=== PATIENT | female | born 1930 | race Caucasian/White ===

== ENCOUNTER 2019-02-24 13:11 | Inpatient (IN) ==
--- NOTE | 2019-02-24 13:39 | Diag Imaging Result Doc PS360 ---
EXAM: CT HEAD W/O CONTRAST INDICATION: poss cva TECHNIQUE: This exam was performed using automated exposure control, adjustment of mA or kV according to patient size, and/or use of iterative reconstruction technique. COMPARISON: 07/21/2018 FINDINGS: Mild diffuse brain atrophy and moderate periventricular and subcortical white matter microangiopathy is stable. There is no definite acute infarct given the limited sensitivity of CT versus MRI. There is no discrete intracranial mass, mass effect, or intracranial hemorrhage. The surrounding soft tissues and bony structures are essentially unremarkable. IMPRESSION: Stable chronic changes as described. No definite acute intracranial pathology by CT. Electronically signed by Oscar Mcdonough 02/24/2019 1:37 PM
--- NOTE | 2019-02-24 13:48 | Diag Imaging Result Doc PS360 ---
EXAM: CHEST-PORTABLE INDICATION: stroke like symptoms TECHNIQUE: One view COMPARISON: 07/21/2018 FINDINGS: There is stable mild chronic appearing interstitial thickening bilaterally. No discrete airspace consolidation is identified. There is no discrete pleural fluid collection or pneumothorax. There are stable CABG changes. The cardiomediastinal silhouette and central vasculature are grossly unremarkable, otherwise. IMPRESSION: Stable chronic interstitial thickening. No definite acute chest pathology. Electronically signed by Oscar Mcdonough 02/24/2019 1:46 PM
[2019-02-24 14:45] LABS: BASO# 0.04 X1000 (0.0-0.2); BASO% 0.5 % (0.0-0.8); EOS# 0.27 X1000 (0.0-0.7); EOS% 3.4 % (0.0-10.0); HEMATOCRIT 39.5 % (37.0-47.0); HEMOGLOBIN 12.8 g/dL (12.0-16.0); LYMPH# 1.83 X1000 (1.2-3.4); LYMPH% 23.1 % (20.5-51.1); MCH 29.7 PG (27-31); MCHC 32.4 g/dL (33-37); MCV 91.6 FL (81-99); MONO# 1.21 X1000 (0.11-0.59); MONO% 15.3 % (1.7-9.3); MPV 10.9 FL (7.4-10.4); NEUT# 4.56 X1000 (1.4-6.5); NEUT% 57.7 % (42.2-75.2); PLT 188 X1000 (130-400); RBC 4.31 XMIL (4.2-5.4); RDW 13.6 % (11.5-14.5); WBC 7.91 X1000 (4.8-10.8)
[2019-02-24 14:47] LABS: URINE SOURCE CATH
[2019-02-24 14:51] LABS: BILIRUBIN URINE NEGATIVE (NEGATIVE); BLOOD URINE NEGATIVE (NEGATIVE); COLOR YELLOW; GLUCOSE URINE NEGATIVE (NEGATIVE); KETONE URINE NEGATIVE (NEGATIVE); LEUKOCYTES URINE NEGATIVE (NEGATIVE); NITRITE URINE NEGATIVE (NEGATIVE); PH URINE 7.5; PROTEIN URINE NEGATIVE (NEGATIVE); SP GRAVITY URINE 1.008; TURBIDITY URINE CLEAR (CLEAR); UROBILINOGEN URINE NORMAL (NORMAL)
[2019-02-24 14:52] LABS: UR EPITHELIAL CELLS <10 /HPF (<10); URINE BACTERIA NEGATIVE /HPF; URINE RBC <10 /HPF (<10); URINE WBC <10 /HPF (<10)
[2019-02-24 14:53] LABS: INR 0.96; PROTIME 13.6 Seconds (11.0-16.0)
[2019-02-24 14:54] LABS: PTT 28.1 Seconds (22.3-41.8)
[2019-02-24 15:28] LABS: AGAP 9; ALB/GLOB RATIO 1.4; ALBUMIN 3.6 g/dL (3.5-5.0); ALKALINE PHOSPHATASE 82 U/L (32-104); BUN 16 mg/dL (8-22); CALCIUM 8.8 mg/dL (8.8-10.2); CHLORIDE 106 mmol/L (98-107); COSMO 284; CREATININE 0.8 mg/dL (0.5-0.9); ESTIMATED GFR > 60; GLUCOSE 87 mg/dL (70-104); GOT 18 U/L (10-30); GPT 8 U/L (10-36); POTASSIUM 4.4 mmol/L (3.5-5.1); SODIUM 142 mmol/L (136-145); TCO2 27 mmol/L (25-35); TOTAL BILIRUBIN 0.41 mg/dL (0.20-1.00); TOTAL PROTEIN 6.2 g/dL (6.3-8.3)
--- NOTE | 2019-02-24 17:00 | PROVIDER DOCUMENTATION ---
This chart was entered by Cesar Posada Scribe, acting as scribe for Lemuel Faulkner MD. HPI-Neurological Disorder - General Stated Complaint: POSS STROKE Time Seen by Provider: 02/24/19 13:32 Source: patient, EMS Allergies/Adverse Reactions: Patient Allergies Allergy/AdvReac Type Severity Reaction Status Date / Time aspirin Allergy Intermediate goes blind Verified 12/12/17 19:28 procaine HCl * Allergy Mild pass out Verified 12/12/17 19:28 [From Novocain] alcohol Allergy RASH Verified 12/12/17 19:28 codeine Allergy Unknown Verified 12/12/17 19:34 clorox Allergy RASH Uncoded 12/12/17 19:28 vinegar Allergy Unknown Uncoded 12/12/17 19:28 Home Medications: Home Medication List Medication Instructions Recorded Confirmed Last Taken Type Glucosamine Sulfate 1,000 mg PO DAILY 08/04/14 07/14/18 08/07/14 08:00 History Panax Ginseng Root [Belarusian Ginseng] 100 mg PO DAILY 08/04/14 07/14/18 08/07/14 08:00 History Cholecalciferol (Vitamin D3) 1,000 unit PO DAILY 12/12/17 07/14/18 Unknown History [Vitamin D3] Cyanocobalamin (Vitamin B-12) 5,000 mcg PO DAILY 12/12/17 07/14/18 Unknown History [Vitamin B12] Metoprolol Tartrate 1 tab PO BID 12/12/17 07/14/18 Unknown History Pravastatin Sodium 40 mg PO QHS 12/12/17 07/14/18 Unknown History Clopidogrel Bisulfate [Clopidogrel] 1 tab PO DAILY 07/14/18 07/14/18 Unknown History Acetaminophen/Diphenhydramine 1 each PO HS 07/15/18 07/15/18 Unknown History [Tylenol Pm] Clopidogrel [Plavix] 75 mg PO DAILY tablet 07/23/18 Unknown Rx Losartan [Cozaar] 25 mg PO DAILY tablet 07/23/18 Unknown Rx Multivit,Fe,Ca,FA & Min [Thera M 1 each PO DAILY tablet 07/23/18 Unknown Rx Plus] - History of Present Illness-Neuro Nature of Presenting Problem: Pt is a 89 y/o F presents to the ED from [facility] with a possible CVA. EMS reports call was for a possible stroke and EMS reports the assisted living center reported some facial droop and slurred speech. Pt reports she is not in pain and does not know why she is in the ED. Pt says she needs to use the restroom. She says she uses a walker at home. Onset/Duration: reports: unsure Any recent trauma/injury?: reports: none New weakness or altered sensation location:: reports: none Cognitive Baseline: alert, oriented x3 Gait Baseline: uses a walker Associated Symptoms: reports: denies symptoms Similar Symptoms Previously?: No Recently seen or treated by another doctor?: No Review of Systems - Adult - REVIEW OF SYSTEMS - ADULT Constitutional: denies: chills, fever Eyes: reports: no symptoms reported Ears, Nose, Mouth & Throat: reports: no symptoms reported Cardiovascular: denies: chest pain, edema, palpitations Respiratory: denies: cough, shortness of breath, wheezing Gastrointestinal: denies: nausea, vomiting Genitourinary: denies: dysuria, discharge Musculoskeletal: denies: back pain, neck pain Integumentary: reports: no symptoms reported Neurological: reports: slurred speech. denies: ataxia, dizziness/vertigo, hea dache/migraines, numbness, seizure, syncope Psychiatric: reports: no symptoms reported Endocrine: reports: no symptoms reported Hematologic/Lymphatic: reports: no symptoms reported Allergic/Immunologic: reports: no symptoms reported All Other Systems: Reviewed and Negative Past History - Adult - PAST MEDICAL HISTORY-ADULT Review of Records: reports: Old Records Reviewed, Nursing Assessment Review, Medications Reviewed Major Childhood Illnesses: reports: denies history Cardiovascular: reports: CAD, HTN, [place] Respiratory: reports: denies history Gastrointestinal: reports: denies history Obstetrical/Gynecological: reports: denies history Genitourinary: reports: denies history Musculoskeletal: reports: denies history Neurological: reports: denies history Endocrine/Immune: reports: denies history 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 - PRIOR SURGERIES/PROCEDURES Surgical/Procedure History: reports: CABG, hysterectomy, bowel surgery - IMMUNIZATION STATUS Childhood Immunizations: See Nurse Assessment Flu Vaccine: See Nurse Assessment - FAMILY HISTORY Family History: reviewed, not pertinent - SOCIAL HISTORY Smoking: non-smoker Substance Use: none/never Living Situation: care facility Physical Exam- Neurological - Physical Exam-Neuro Initial Vital Signs Reviewed: Yes General Appearance: appears well, alert, no apparent distress Eye Exam: bilateral eye: normal inspection, PERRL HENMT: moist mucous membranes, normal ENT inspection, pharynx normal Head Injury: no evidence of injury. negative: active bleeding Neck: non-tender, full range of motion, supple, normal inspection Respiratory: lungs clear, normal breath sounds, no pleuratic chest pain, no respiratory distress, no accessory muscle use Cardiovascular: normal peripheral pulses, regular rate, rhythm Abdominal Exam: normal bowel sounds, non tender, soft Extremity: normal range of motion, non-tender, normal gait, normal inspection phone operator Exam: normal hearing, normal speech, PERRL Motor/Sensory: no motor deficit, no sensory deficit, no pronator drift Neurologic: grossly normal, no motor/sensory deficits. negative: aphasia, facial droop Integumentary: normal color, normal turgor, warm/dry Psych/Mental Status: normal mood/affect, normal thought content, normal thought process, oriented x 3 - Glascow Coma Scale Best Eye Response: (4) open spontaneously Best Verbal Response: (5) oriented Best Motor Response: (6) obeys commands Total Glascow Score: 15 Progress - PLAN OF CARE/RESULTS Progress/Plan/Lab Results: Vital Signs - 8 hr 02/24/19 13:41 Temperature 98.1 F Pulse Rate 85 Respiratory Rate 18 Blood Pressure 149/87 O2 Sat by Pulse Oximetry 96 Laboratory Results - last 24 hr 02/24/19 02/24/19 02/24/19 14:02 14:02 14:02 WBC 7.91 RBC 4.31 Hgb 12.8 Hct 39.5 MCV 91.6 MCH 29.7 MCHC 32.4 L RDW Std Deviation 13.6 Plt Count 188 MPV 10.9 H Immature Gran % (Auto) 0.0 Neut % (Auto) 57.7 Lymph % (Auto) 23.1 Richardson % (Auto) 15.3 H Eos % (Auto) 3.4 Baso % (Auto) 0.5 Immature Gran # (Auto) 0.00 Neut # (Auto) 4.56 Lymph # (Auto) 1.83 Richardson # (Auto) 1.21 H Eos # (Auto) 0.27 Baso # (Auto) 0.04 PT 13.6 INR 0.96 PTT (Actin FS) 28.1 Sodium 142 Potassium 4.4 Chloride 106 Carbon Dioxide 27 Anion Gap 9 BUN 16 Creatinine 0.8 Estimated GFR/1.73 m2 > 60 BUN/Creatinine Ratio 20 Glucose 87 POC Glucose Calculated Osmolality 284 Calcium 8.8 Total Bilirubin 0.41 AST 18 ALT 8 L Alkaline Phosphatase 82 Troponin T Total Protein 6.2 L Albumin 3.6 Globulin 2.6 Albumin/Globulin Ratio 1.4 Urine Source Urine Color Urine Turbidity Urine pH Ur Specific Home Urine Protein Ur Glucose (Stick) Ur Ketones (Stick) Urine Blood Urine Nitrite Urine Bilirubin Urobilinogen Dipstick Urine Leukocytes Urine WBC (Auto) Urine RBC (Auto) U Epithel Cells (Auto) Urine Bacteria (Auto) 02/24/19 02/24/19 02/24/19 14:02 14:25 14:36 WBC RBC Hgb Hct MCV MCH MCHC RDW Std Deviation Plt Count MPV Immature Gran % (Auto) Neut % (Auto) Lymph % (Auto) Richardson % (Auto) Eos % (Auto) Baso % (Auto) Immature Gran # (Auto) Neut # (Auto) Lymph # (Auto) Richardson # (Auto) Eos # (Auto) Baso # (Auto) PT INR PTT (Actin FS) Sodium Potassium Chloride Carbon Dioxide Anion Gap BUN Creatinine Estimated GFR/1.73 m2 BUN/Creatinine Ratio Glucose POC Glucose 112 H Calculated Osmolality Calcium Total Bilirubin AST ALT Alkaline Phosphatase Troponin T < 0.010 Total Protein Albumin Globulin Albumin/Globulin Ratio Urine Source CATH Urine Color YELLOW Urine Turbidity CLEAR Urine pH 7.5 Ur Specific Home 1.008 Urine Protein NEGATIVE Ur Glucose (Stick) NEGATIVE Ur Ketones (Stick) NEGATIVE Urine Blood NEGATIVE Urine Nitrite NEGATIVE Urine Bilirubin NEGATIVE Urobilinogen Dipstick NORMAL Urine Leukocytes NEGATIVE Urine WBC (Auto) <10 Urine RBC (Auto) <10 U Epithel Cells (Auto) <10 Urine Bacteria (Auto) NEGATIVE Orders Category Date Time Status Cardiac Monitoring DIRECTED Care 02/24/19 13:32 Active Finger Stick Blood Sugar (ED) DIRECTED Care 02/24/19 13:32 Active Misc. NRSG Communication Order DIRECTED Care 02/24/19 13:32 Active Oxygen Therapy- ED Nursing DIRECTED Care 02/24/19 13:32 Active Saline Loc NOW Care 02/24/19 13:32 Active CHEST-PORTABLE [RAD] Stat Exams 02/24/19 13:[address] HEAD W/O CONTRAST [CT] Stat Exams 02/24/19 13:22 Completed CBC WITH ELECTRONIC DIFF [HEME] Stat Lab 02/24/19 14:02 Completed COMPREHENSIVE METABOLIC PANEL [CHEM] Stat Lab 02/24/19 14:02 Completed PROTIME WITH INR [COAG] Stat Lab 02/24/19 14:02 Completed PTT [COAG] Stat Lab 02/24/19 14:02 Completed TROPONIN T Stat Lab 02/24/19 14:02 Completed URINALYSIS W/POSS RFLX CULT [URINALYSIS] Stat Lab 02/24/19 14:25 Completed EKG [EKG] Stat Ther 02/24/19 13:32 Ordered Result Diagrams: 02/24/19 14:02 02/24/19 14:02 - XRAY 1 XRAY Study: Chest Impression: Normal ( EXAM: CHEST-PORTABLE INDICATION: stroke like symptoms TECHNIQUE: One view COMPARISON: 07/21/2018 FINDINGS: There is stable mild chronic appearing interstitial thickening bilaterally. No discrete airspace consolidation is identified. There is no discrete pleural fluid collection or pneumothorax. There are stable CABG changes. The cardiomediastinal silhouette and central vasculature are grossly unremarkable, otherwise. IMPRESSION: Stable chronic interstitial thickening. No definite acute chest pathology. Electronically signed by Oscar Mcdonough 02/24/2019 1:46 PM) - CT/MRI 1 CT Study: Head Impression: Normal ( EXAM: CT HEAD W/O CONTRAST INDICATION: poss cva TECHNIQUE: This exam was performed using automated exposure control, adjustment of mA or kV according to patient size, and/or use of iterative reconstruction t echnique. COMPARISON: 07/21/2018 FINDINGS: Mild diffuse brain atrophy and moderate periventricular and subcortical white matter microangiopathy is stable. There is no definite acute infarct given the limited sensitivity of CT versus MRI. There is no discrete intracranial mass, mass effect, or intracranial hemorrhage. The surrounding soft tissues and bony structures are essentially unremarkable. IMPRESSION: Stable chronic changes as described. No definite acute intracranial pathology by CT. Electronically signed by Oscar Mcdonough 02/24/2019 1:37 PM) - CONSULTS/PCP/HOSPITALIST Notification #1 *Consult/PCP/Hospitalist*: Hospitalist- Spoke with Summer; Accepting [facility] Time Discussed: 16:48 Reason/Comments: admission Consult Disposition: Will see in ED Departure - Departure Date of Disposition Decision: 02/24/19 Time of Disposition Decision: 16:48 DIAGNOSIS: TIA (transient ischemic attack), HTN (hypertension) Disposition: ADMITTED INPATIENT 09 Certified Medical Emergency: Emergent Condition: Fair Referrals and Follow-Ups: None,PCP [Primary Care Provider] - - Critical Care Note This patient required my direct & personal management of CC.: No Attestation - Physician/ ALVARO Attestation Patient care was provided by Advanced Practice Provider:: No The physician spent face to face time with patient:: Yes Advanced Practice Provider documentation review:: Supervising physician onsite and consulted in the evaluation and care of this patient. The physician did have a face to face encounter with the patient. - NIH Stroke Scale Level of Consciousness: 0-Alert LOC Questions (ask month and age): 0-Answers Both Correctly Best Gaze (horizontal eye movement): 0-Normal Visual (use finger movement, counting or visual threat): 0-No Visual Loss Facial Palsy (show teeth or raise eyebrows & close eyes tght: 0-Symmetrical Movement Motor Function-left arm: 0-Normal Motor Function-right arm: 0-Normal Motor Function-left le-Normal Motor Function-right le-Normal Limb Ataxia([id number], or heel to beaver): 0-No Ataxia Sensory(pin prick to face,arms,trunk,legs-compare side/side): 0-No Ataxia This chart was documented by the indicated scribe, (Cesar Posada Scribe) and accurately reflects the services I performed and decisions made by me, Lemuel Faulkner MD, as attested by the provider's signature.
[2019-02-24] MEDS ORDERED: ZOFRAN IV PRN (17:34)
--- NOTE | 2019-02-24 18:58 | HISTORY AND PHYSICAL ---
CHIEF COMPLAINT: TIA symptoms (facial droop, slurred speech). HPI: The patient is a 89-year-old female with history of hypertension, coronary artery disease, hyperlipidemia, dementia, pseudogout and permanent atrial fibrillation. She lives at a half-way, had sudden onset of facial droop and slurred speech which resolved after 1 to 2 hours prior to arrival at the hospital. She never had anything like this before. She is on Plavix and a statin, but is not on aspirin as she is allergic. She was previously on a blood thinner but was taken off because of frequent falls. She denies fever, chills, chest pain, dyspnea, cough, dysuria, diarrhea, nausea, vomiting. REVIEW OF SYSTEMS: Twelve point review of systems negative except as per HPI. ALLERGIES: Aspirin, alcohol, codeine, procaine. PAST MEDICAL HISTORY: As per HPI. PAST SURGICAL HISTORY: CABG, hysterectomy, back surgery, partial colectomy for suspected cancer that came back benign. SOCIAL HISTORY: Denies tobacco, alcohol or illicit drug use. FAMILY HISTORY: Both parents . Mother with an DC. Father from unknown complications diabetes. LABS: CBC unremarkable. INR normal. Complete metabolic panel remarkable only for glucose 112, otherwise within normal limits. Urinalysis negative. IMAGING: Head CT with stable chronic changes but no acute pathology. Chest x-ray with stable chronic interstitial thickening but no acute pathology. VITALS: Temperature 98.1 degrees, pulse 85, respirations 18, blood pressure 149/87, O2 saturation 96% on 2 L by nasal cannula. PHYSICAL EXAMINATION: GENERAL: No acute distress. Vitals as above. HEENT: Normocephalic, atraumatic. Moist mucous membranes. Slight right ptosis (longstanding per family). No cervical adenopathy. CARDIOVASCULAR: Irregular rhythm but normal rate. No murmurs noted. PULMONARY: Clear to auscultation bilaterally. ABDOMEN: Soft, nontender, nondistended. Bowel sounds positive. EXTREMITIES: Peripheral pulses intact. Trace to 1+ edema of the left leg. No edema in the right leg. NEUROLOGIC: Right ptosis as above. 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 Otherwise cranial nerves appear to be intact. Mild global weakness but no focal neurologic deficits identified. PSYCHIATRIC: Normal mood and affect. Responds to most questions appropriately but occasionally gets confused and appears to give response from years ago. Oriented to person, place but not time. Patient hard of hearing as well which is also chronic. SKIN: No new rashes or lesions identified. ASSESSMENT AND PLAN: 1. Likely transient ischemic attack versus possible stroke. Patient with facial droop and slurred speech resolved prior to arrival. On Plavix and statin at home but cannot take aspirin due to allergy. Not on blood thinner because of frequent falls. Will obtain MRI to rule out embolic stroke. Carotid Dopplers, echocardiogram to look for secondary causes. Will let physical therapy evaluate patient. If workup unremarkable can likely be discharged back to her half-way tomorrow. 2. Left leg swelling fairly mild, likely old but will check venous ultrasound to rule out DVT. 3. Atrial fibrillation appears to be permanent. Has been on blood thinner in the past but taken off because of frequent falling. Discussed with family if stroke is found that we will consider restarting anticoagulation but otherwise are happy leaving her off of it. Will continue home medications when available. 4. Hypertension moderately elevated in the emergency room. We will continue home medications when available. 5. Dementia, likely moderate. Continue home medications. 6. Coronary artery disease. Continue Plavix and statin. 7. Hyperlipidemia. Continue statin . 8. Pseudogout reasonably controlled with Tylenol at the half-way. 9. Hyperglycemia quite minimal but will check A1c. 10. Deep vein thrombosis prophylaxis FetchBack.
[2019-02-24] MEDS: LOVENOX SUBQ SCH (23:40)
[2019-02-24] MEDS: PRAVACHOL PO SCH (23:40)
[2019-02-24] MEDS: LOPRESSOR PO SCH (23:40)
[2019-02-24] MEDS: NS 1,000 ML IV SCH (23:40)
[2019-02-25] MEDS: TYLENOL PO PRN (03:45)
[2019-02-25 07:14] LABS: INR 1.03; PROTIME 14.3 Seconds (11.0-16.0); PTT 37.8 Seconds (22.3-41.8)
[2019-02-25 07:21] LABS: BASO# 0.04 X1000 (0.0-0.2); BASO% 0.6 % (0.0-0.8); EOS# 0.28 X1000 (0.0-0.7); EOS% 4.1 % (0.0-10.0); HEMATOCRIT 40.3 % (37.0-47.0); HEMOGLOBIN 12.8 g/dL (12.0-16.0); LYMPH# 1.63 X1000 (1.2-3.4); LYMPH% 24.1 % (20.5-51.1); MCH 29.1 PG (27-31); MCHC 31.8 g/dL (33-37); MCV 91.6 FL (81-99); MONO% 14.8 % (1.7-9.3); NEUT% 56.4 % (42.2-75.2); PLT 185 X1000 (130-400); RDW 13.7 % (11.5-14.5); WBC 6.75 X1000 (4.8-10.8)
[2019-02-25 07:40] LABS: AGAP 10; ALB/GLOB RATIO 1.2; ALBUMIN 3.3 g/dL (3.5-5.0); ALKALINE PHOSPHATASE 77 U/L (32-104); BUN 15 mg/dL (8-22); CALCIUM 8.7 mg/dL (8.8-10.2); CHLORIDE 107 mmol/L (98-107); COSMO 286; CREATININE 0.7 mg/dL (0.5-0.9); ESTIMATED GFR > 60; GLUCOSE 109 mg/dL (70-104); GOT 19 U/L (10-30); GPT 9 U/L (10-36); POTASSIUM 4.1 mmol/L (3.5-5.1); SODIUM 143 mmol/L (136-145); TCO2 26 mmol/L (25-35)
[2019-02-25 07:43] LABS: HEMOGLOBIN A1C 6.3 % (4.8-6.0)
[2019-02-25] MEDS: COZAAR PO SCH (09:08)
[2019-02-25] MEDS: PLAVIX PO SCH (09:08)
[2019-02-25] MEDS: LOPRESSOR PO SCH ×2 (09:08→22:16)
[2019-02-25] MEDS: NS 1,000 ML IV SCH (13:12)
--- NOTE | 2019-02-25 14:43 | Diag Imaging Result Doc PS360 ---
MRI BRAIN W/O CONTRAST - 02/25/2019 INDICATION: ? CVA, afib COMPARISON: Head CT 02/24/2019 FINDINGS: There is no area of restricted diffusion. There is moderate diffuse cerebral atrophy. There is moderately advanced periventricular white matter hyperintensity compatible with chronic microvascular disease. No intracranial mass or hemorrhage. Midline structures are unremarkable. IMPRESSION: Atrophy and chronic microvascular disease. No acute disease. Electronically signed by Everardo Hernandez 02/25/2019 2:40 PM
--- NOTE | 2019-02-25 17:31 | ECHO REPORT ---
ORDER DATE: 02/25/2019 INDICATION: Transient ischemic attack. FINDINGS: 1. The right atrium appears normal in size. 2. Mild tricuspid regurgitation with RV systolic pressure of 53 mmHg. 3. Normal RV size and systolic function. 4. Mild pulmonic insufficiency. 5. Mild left atrial enlargement with a dimension of 4.5 cm. 6. No mitral valve prolapse. Mild mitral regurgitation. 7. Normal LV size, end-diastolic dimension of 4.8. Normal wall thicknesses with a posterior and interventricular septal wall thickness of 0.8 and 0.7 cm, respectively. Normal LV systolic function. The estimated EF is greater than 55%. 8. The aortic valve opens well. It is trileaflet. No evidence of stenosis or insufficiency. 9. The aorta appears normal in visualized segments. 10. There does not appear to be any pericardial effusion. cc: Rafy Echeverria MD
--- NOTE | 2019-02-25 17:44 | PROGRESS NOTE ---
DATE: 02/25/2019 INTERVAL HISTORY: Patient with no further neurological symptoms. Remains pleasantly confused but cooperative and answers most questions appropriately. During patient's echo incidental note was made of some concerning breast nodules. Discussed with family. The family member available believes that this was previously known to them and that they elected not to pursue workup because of the patient's age and health. She plans on double checking with family members who are more directly involved in the patient's care and will let us know for certain. REVIEW OF SYSTEMS: A 12 point review of systems negative except as per HPI. LABS: WBC 6.75, hemoglobin 12.8, hematocrit 40.3, platelets 185,000. Sodium 143, potassium 4.1, BUN 15, creatinine 0.7, glucose 109. Hemoglobin A1c 6.3. Urinalysis unremarkable. IMAGING: Brain MRI with atrophy and chronic microvascular disease but no acute process. VITAL SIGNS: T-max 98.1, pulse 81, blood pressure 142/59, O2 saturation 96% on room air. PHYSICAL EXAMINATION: General: No acute distress. Vital signs: As above. HEENT: Normocephalic, atraumatic. Moist mucous membranes. Slight right ptosis, chronic and stable. No cervical adenopathy. Cardiovascular: Irregular rhythm but normal rate. No murmurs noted. Pulmonary: Clear to auscultation bilaterally. No wheezing, rales, or rhonchi. Abdomen: Soft, nontender, nondistended. Bowel sounds positive. Extremities: Peripheral pulses intact. Trace to edema of the left leg. No edema in the right leg. Unchanged from previous. Neurologic: Right ptosis as above. Poor vision in the right eye, which is old. Mildly hard of hearing. Otherwise cranial nerves appear to be intact. Mild global weakness, but no focal neurologic deficits identified. Psychiatric: Normal mood and affect. Oriented to person and place but not time. Answers most questions appropriately but does occasionally begin asking questions about remote events and people. Skin: No new rashes or lesions identified. ASSESSMENT AND PLAN: 1. Likely transient ischemic attack. Patient with facial droop, slurred speech that resolved prior to arrival. On Plavix and statin at home but cannot take aspirin due to allergy. Not on blood thinner because of frequent falls. MRI with no acute stroke so likely TIA. Carotid Dopplers and echo pending but given negative MRI it is likely low yield. 2. Breast nodules. Patient with nodules noted incidentally on preliminary echo report. Discussed with family as above. Likely known and family has elected not to pursue further workup. 3. Left leg swelling. Ultrasound performed to rule out DVT as edema is slightly asymmetric. Full report pending but preliminary report is negative for DVT. 4. Permanent atrial fibrillation. The patient was on a blood thinner in the past, but was taken off because of frequent falls. Family plans on continuing to leave this off. 5. Hypertension. Reasonable control given age on current medication. Continue to monitor. 6. Dementia. Continue home medications. 7. Coronary artery disease. Continue Plavix and statin. 8. Hyperlipidemia. Continue statin. 9. Pseudogout. Reasonable control with Tylenol at the custodial. We will continue that. 10. Hyperglycemia. A1c suggest diet-controlled diabetes. Given age no need for further intervention. 11. Deep vein thrombosis prophylaxis with Lovenox. 12. Disposition. Patient is okay to go back to the custodial but they will not take her today. We will plan on discharge back to [facility] tomorrow.
[2019-02-25] MEDS: LOVENOX SUBQ SCH (22:16)
[2019-02-25] MEDS: PRAVACHOL PO SCH (22:16)
[2019-02-26] MEDS: TYLENOL PO PRN (03:45)
[2019-02-26] MEDS: COZAAR PO SCH (10:43)
[2019-02-26] MEDS: PLAVIX PO SCH (10:43)
[2019-02-26] MEDS: LOPRESSOR PO SCH (10:43)
[2019-02-26 12:17] VITALS: BP 128/63
--- NOTE | 2019-02-26 13:11 | Carotid Study ---
DATE: 02/25/2019 PROCEDURE: Bilateral carotid ultrasound study. REQUESTING PHYSICIAN: Meaghan Faulkner MD. INTERPRETING PHYSICIAN: Marc Gauthier MD. TECH: [place]. INDICATIONS: TIA. EQUIPMENT: [employer] E9 ultrasound system with a 9LD transducer. OBSERVED DATA RIGHT LEFT Brachial Blood Pressure Carotid Pulse Bruits: Carotid/Sub DIAGRAM OF ULTRASOUND IMAGING R L RIGHT INT EXT INT EXT LEFT [place] (cm/s) Wesly (cm/s) Subclavian 63/1 Subclavian 95/0 CCA Proximal 50/10 CCA Proximal 60/5 CCA Distal 55/10 CCA Distal 56/6 Bulb 55/11 Bulb 50/6 ICA Proximal 82/18 ICA Proximal 48/8 ICA Mid 53/12 ICA Mid 64/11 ICA Distal 54/11 ICA Distal 58/8 ECA 81/5 ECA 106/3 Vertebral 68/0 Vertebral 37/0 ICA/CCA Ratio 1.38 ICA/CCA Ratio 1.07 % Stenosis 0-39% % Stenosis 0-39% FINDINGS: Minimal atherosclerosis, which at this time does not produce a hemodynamically significant flow-limiting stenosis. Both vertebral arteries are antegrade flow. PHYSICIAN INTERPRETATION: By strict velocity criteria, no hemodynamically significant flow- limiting stenosis noted. cc: Marc Gauthier MD
--- NOTE | 2019-02-26 13:44 | DISCHARGE SUMMARY ---
ADMISSION DATE: 02/24/2019 DISCHARGE DATE: 02/26/2019 DIAGNOSES: 1. Likely transient ischemic attack. The patient with facial droop and slurred speech that resolved prior to arrival. 2. Breast nodules. 3. Left leg edema, deep vein thrombosis ruled out by pulmonary venous Doppler report. 4. Permanent atrial fibrillation, not on anticoagulation due to frequent falls. 5. Hypertension. 6. Coronary artery disease. 7. Hyperlipidemia. 8. Pseudogout. DIAGNOSTICS: 1. Head CT revealed stable chronic changes. 2. Chest x-ray revealed stable chronic interstitial thickening. No definite acute chest pathology. 3. Brain MRI revealed atrophy and chronic microvascular disease. No acute disease. 4. Echocardiogram revealed an EF of 55%. HOSPITAL COURSE: Ms. Garza presented to the emergency room after having an episode of facial droop and slurred speech. This did resolve 1 to 2 hours prior to arriving at the hospital and has not recurred. CT of the head and MRI as stated above. We continued the patient's Plavix and statin. Of note, the patient is not on aspirin secondary to an allergy, nor is she on any anticoagulation as this was discontinued due to frequent falls. She was in atrial fibrillation with rate controlled throughout the hospitalization. She did have some left lower edema. A venous Doppler was performed, which preliminarily revealed no evidence of DVT. Thankfully, she is ready for discharge. DISCHARGE VITAL SIGNS: Blood pressure is 128/63 with a heart rate of 91, respirations 18, temperature is 98.1 degrees oral with room air saturations 96% to 99%. DISCHARGE PHYSICAL EXAMINATION: Cardiovascular: Irregularly irregular rate and rhythm. S1 and S2 appreciated. Pulmonary: Breath sounds are clear. No increased work of breathing noted. Chest rises and falls symmetric with respiration. Gastrointestinal: Abdomen is soft, nontender, nondistended with bowel sounds in all 4 quadrants. Neurologic: She is alert and oriented. She is at her baseline per family. DISCHARGE MEDICATIONS: Tylenol p.m. 1 p.o. at bedtime. Loratadine 10 mg p.o. at bedtime. Pravastatin 40 mg p.o. at bedtime. Albuterol inhaler 1 puff t.i.d. as needed for wheezing. Glucosamine sulfate 1000 mg p.o. daily. Senna 8.6 mg p.o. daily. Liquid protein fortifier 30 mL p.o. b.i.d. Lao ginseng 100 mg p.o. daily Thera Plus 1 p.o. daily. Vitamin B12 of 5000 mcg p.o. daily. Vitamin D3 of 1000 units p.o. daily. Tylenol PM 1 p.o. at bedtime. Metoprolol 100 mg p.o. b.i.d. Losartan 25 mg p.o. daily. Plavix 75 mg p.o. daily. FOLLOW-UP: She is to follow up with her primary care provider in 1 week, sooner if needed. She has been instructed to return to the ER or call to be seen sooner for any syncope, dizziness, chest pain, palpitations, any recurring facial droop, slurred speech, any nausea/vomiting, diarrhea, constipation, black or bloody vomitus or stools, any hematuria, dysuria, frequency, urgency, or for any questions or concerns that she may have. DISPOSITION: She is being discharged to [facility] in stable condition with family members present. COMPLEXITY: This is a greater than 30-minute discharge. Dictated by SHAWANDA Cisneros for Greg Alvarado MD cc: SHAWANDA Cisneros MD MTDD
--- NOTE | 2019-02-26 15:07 | Extremity Venous Study ---
PROCEDURE NAME: Venous U/S Left Leg - 02/24/2019 REQUESTING PHYSICIAN: Dr. Jackson. SUBWAREHOUSE SUPERVISOR: Igor. INDICATIONS: Edema. EQUIPMENT: Purple Vivid E9 ultrasound system, with a 9 L-D transducer. FINDINGS: Images the left lower extremity venous system with comparison shot to the right common femoral vein were obtained in both sagittal and transverse planes. Doppler was used to evaluate veins for spontaneity, phasicity, respiratory excursion, and digital augmentation. RESULTS: Noted the left greater saphenous vein has been harvested, but no obvious superficial or deep venous thrombosis noted. INTERPRETATION: Essentially normal left lower extremity venous study. cc: Marc Gauthier MD
== END 2019-02-26 15:20 | DRG 69 ==
LOC: ED 13:11 → EDIPHOLD 21:33 → SUATTDRO 21:33 → 3N 23:03
PROVIDERS: ATTEND Internal Medicine
CPT/HCPCS: 70450; 70551; 71010; 71045; 80053; 80061; 81001; 82948; 83036; 83721; 84484; 85025; 85610; 85730; 93005; 93306; 93880; 93971; 97116; 97162; 97530; 99285; A9270; C8929; J1650; J7030; Q9957; XXXXX

== ENCOUNTER 2019-07-10 07:11 | Inpatient (IN) ==
[2019-07-10] MEDS ORDERED: DILAUDID IV ONE (07:19)
[2019-07-10] MEDS ORDERED: ZOFRAN IV ONE (07:19)
[2019-07-10 07:51] LABS: BASO# 0.03 X1000 (0.0-0.2); BASO% 0.3 % (0.0-0.8); EOS# 0.26 X1000 (0.0-0.7); EOS% 2.8 % (0.0-10.0); HEMATOCRIT 41.5 % (37.0-47.0); HEMOGLOBIN 12.9 g/dL (12.0-16.0); IMM GRAN# 0.02 X1000 (0.0-0.04); IMM GRAN% 0.2 % (0.0-0.5); LYMPH# 1.58 X1000 (1.2-3.4); MCH 28.9 PG (27-31); MCHC 31.1 g/dL (33-37); MONO# 1.03 X1000 (0.11-0.59); MONO% 11.1 % (1.7-9.3); NEUT% 68.6 % (42.2-75.2); PLT 182 X1000 (130-400); RBC 4.46 XMIL (4.2-5.4); RDW 13.4 % (11.5-14.5); WBC 9.32 X1000 (4.8-10.8)
--- NOTE | 2019-07-10 08:00 | Diag Imaging Result Doc PS360 ---
EXAM: CHEST-1 VIEW INDICATION: hip fx surg clearance TECHNIQUE: One view COMPARISON: 02/24/2019 FINDINGS: There is chronic appearing interstitial thickening bilaterally that is stable. The lungs are grossly clear, otherwise. There is no discrete pleural fluid collection or pneumothorax. There are CABG changes and cardiomegaly. Central vasculature is unremarkable. There is evidence of old healed rib fractures on the left. IMPRESSION: Mild chronic appearing interstitial thickening that is stable as well as cardiomegaly. No definite acute chest pathology by plain radiograph. Electronically signed by Oscar Mcdonough 07/10/2019 7:57 AM
--- NOTE | 2019-07-10 08:01 | Diag Imaging Result Doc PS360 ---
EXAM: XRAY PELVIS W/HIP 2-3VW LT INDICATION: fall, injury TECHNIQUE: 3 views COMPARISON: None. FINDINGS: The bones are osteopenic and there are degenerative changes at both hips as well as the lumbar spine. There is an intertrochanteric fracture on the left with some comminution. There is mild displacement of the shaft with respect to the femoral neck. No other discrete fracture or dislocation is appreciated. IMPRESSION: Left hip intertrochanteric fracture as described. Electronically signed by Oscar Mcdonough 07/10/2019 7:59 AM
[2019-07-10 08:06] LABS: INR 1.08; PROTIME 14.2 Seconds (11.0-16.0)
[2019-07-10 08:07] LABS: PTT 30.6 Seconds (22.3-41.8)
--- NOTE | 2019-07-10 08:20 | Diag Imaging Result Doc PS360 ---
CT HEAD/C-SPINE W/O CONTRAST - 07/10/2019 INDICATION: head injury/pain COMPARISON: 02/24/2019 FINDINGS: Head CT: There is stable diffuse cerebral atrophy. Stable moderate periventricular white matter chronic microvascular ischemia. No intracranial mass or hemorrhage. The skull is intact. The sinuses, mastoids, and middle ears are clear. Cervical spine: Alignment is anatomic. No fracture or subluxation. Stable advanced multilevel degenerative disc disease. Stable bulky anterior degenerative osteophyte formation. IMPRESSION: No acute injury. This exam was performed using automated exposure control, adjustment of mA or kV according to patient size, and/or use of iterative reconstruction technique Electronically signed by Everardo Hernandez 07/10/2019 8:18 AM
--- NOTE | 2019-07-10 08:34 | PROVIDER DOCUMENTATION ---
HPI-Musculoskeletal Pain/Inj - GENERAL Chief Complaint: Hip Injury Stated Complaint: FALL LEFT HIP PAIN Time Seen by Provider: 07/10/19 07:15 Source: patient - HX OF PRESENT ILLNESS-MUSKULOSKELTAL Nature of Presenting Problem: 89 y/o WF c/o LT hip pain since falling out of bed last night at [place]. Pt denies any other pain or injuries in the ER. Quality of Pain: reports: aching, sharp Severity in ED: moderate Onset/Duration: 4-6 hours ago Timing: still present Modifying Factors: improves with: movement, palpation Any recent injury?: Yes Locality of Occurance: Other (usp) Similar Symptoms Previously?: No Recently seen or treated by another doctor?: No - FALL INJURY Location of Pain/Injury: reports: lower extremity (lt hip) Pain Radiation: reports: no radiation Reason for Fall: reports: other (rolled out of bed) Symptoms prior to fall:: reports: none Loss of Consciousness: no loss of consciousness Injury Associated Symptoms: reports: snap/crack/pop sensation, unable to bear weight - BACK & NECK PAIN/INJURY Back/Neck Pain Location: denies: C-spine, T-spine, lumbar spine, sacrum, coccyx, paraspinous muscles, other Back/Neck Pain Radiation: denies: headache, shoulders, arm(s), Buttocks, Upper Legs, Lower Legs, Feet, Other Context / Method of Injury: denies: unknown, direct blow, fall, lifting, motor vehicle crash, overuse, prior injury, twisted, other Associated Symptoms: denies: denies symptoms, loss of bladder control, loss of bowel control, fever, lower back pain, muscle spasms, numbness in legs/feet, numbness in upper ext, sensory/motor loss, tingling in legs/feet, tingling in upper ext, weakness in legs/feet, weakness in upper ext, other - TRUNK INJURY Location of Injury(s)/Pain: denies: chest, abdomen, ribs, pelvis, extends to back, generalized, other Context / Method of Injury: denies: none, fall, blunt force, incision, stabbing, burn, GSW, seizure, became dizzy/fainted, MVC, recent physical stress, recent trauma history, other Associated Symptoms: denies: denies symptoms, anxiety, arm pain, back/neck pain, chest pain, nausea/vomiting, shortness of breath, sensory/motor loss, pain with breathing, other - HIP/PELVIS PAIN/INJURY Hip Pain Location: reports: hip (L) Pain Radiation: reports: no radiation Context / Method of Injury: reports: fall (from bed) Associated Symptoms: reports: denies symptoms - LOWER EXTREMITY PAIN/INJURY Lower Extremities Pain: hip: left Context / Method of Injury: reports: fell - UPPER EXTREMITY PAIN/INJURY Context / Method of Injury: denies: unknown, assault, burn, direct blow, fell, incised, motor vehicle accident, sports injury, twisted, other Associated Symptoms: denies: denies symptoms, muscle spasms, numbness in upper ext, sensory/motor loss, tingling in upper ext, weakness in upper ext, other Review of Systems - Adult - REVIEW OF SYSTEMS - ADULT Constitutional: reports: no symptoms reported, see HPI Eyes: reports: no symptoms reported, see HPI Ears, Nose, Mouth & Throat: reports: no symptoms reported, see HPI Cardiovascular: reports: no symptoms reported, see HPI Respiratory: reports: no symptoms reported, see HPI Gastrointestinal: reports: no symptoms reported, see HPI Genitourinary: reports: no symptoms reported, see HPI Musculoskeletal: reports: see HPI, joint pain (lt hip pain) Integumentary: reports: no symptoms reported, see HPI Neurological: reports: no symptoms reported, see HPI Psychiatric: reports: no symptoms reported, see HPI Endocrine: reports: no symptoms reported, see HPI Hematologic/Lymphatic: reports: no symptoms reported, see HPI Allergic/Immunologic: reports: no symptoms reported, see HPI All Other Systems: Reviewed and Negative Past History - Adult - PAST MEDICAL HISTORY-ADULT Review of Records: reports: Nursing Assessment Review, Medications Reviewed, Social history reviewed & non-contributory. 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 - PRIOR SURGERIES/PROCEDURES Surgical/Procedure History: reports: CABG, hysterectomy, bowel surgery - IMMUNIZATION STATUS Childhood Immunizations: See Nurse Assessment Flu Vaccine: See Nurse Assessment - FAMILY HISTORY Family History: reviewed, not pertinent Physical Exam-Injury Related - Physical Exam-Injury Related Initial Vital Signs Reviewed: Yes General Appearance: appears well, alert, no apparent distress Eyes: PERRL/EOMI Head, Ears, Nose, Mouth & Throat: normocephalic/atraumatic, moist mucous membranes Neck: non-tender, full range of motion, supple, normal inspection Respiratory: chest non-tender, lungs clear, normal breath sounds, no pleuratic chest pain, no respiratory distress, no accessory muscle use Cardiovascular: normal peripheral pulses, regular rate, rhythm, no edema, no gallop, no JVD, no murmur Abdominal Exam: normal bowel sounds, non tender, soft, no organomegaly, no pulsatile mass Lymphatic: no adenopathy Back Exam: normal inspection, no CVA tenderness, no vertebral tenderness Extremity: no pedal edema, no calf tenderness, normal capillary refill, deformity (Lt leg shortened and internally rotated), tenderness (to lt hip) Integumentary: normal color, warm/dry 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, grossly normal, no motor/sensory deficits Psych/Mental Status: normal mood/affect, normal thought content, normal thought process, oriented x 3 - Glascow Coma Score Best Eye Response (Janneth): (4) open spontaneously Best Verbal Response (Janneth): (5) oriented Best Motor Response (Janneth): (6) obeys commands Progress - PLAN OF CARE/RESULTS Progress/Plan/Lab Results: Vital Signs - 8 hr 07/10/19 07:30 Pulse Rate 75 Respiratory Rate 20 Blood Pressure 167/90 O2 Sat by Pulse Oximetry 95 Laboratory Results - last 24 hr 07/10/19 07/10/19 07/10/19 07:40 07:40 07:40 WBC 9.32 RBC 4.46 Hgb 12.9 Hct 41.5 MCV 93.0 MCH 28.9 MCHC 31.1 L RDW Std Deviation 13.4 Plt Count 182 MPV 11.0 H Immature Gran % (Auto) 0.2 Neut % (Auto) 68.6 Lymph % (Auto) 17.0 L [place] % (Auto) 11.1 H Eos % (Auto) 2.8 Baso % (Auto) 0.3 Immature Gran # (Auto) 0.02 Neut # (Auto) 6.40 Lymph # (Auto) 1.58 [place] # (Auto) 1.03 H Eos # (Auto) 0.26 Baso # (Auto) 0.03 PT 14.2 INR 1.08 PTT (Actin FS) 30.6 Sodium 139 Potassium 4.0 Chloride 101 Carbon Dioxide 30 Anion Gap 8 BUN 16 Creatinine 0.7 Estimated GFR/1.73 m2 > 60 BUN/Creatinine Ratio 23 Glucose 125 H Calculated Osmolality 280 Calcium 8.7 L Total Bilirubin 0.37 AST 19 ALT 12 Alkaline Phosphatase 83 Total Protein 6.6 Albumin 4.0 Globulin 2.6 Albumin/Globulin Ratio 1.5 Orders Category Date Time Status CT HEAD/C-SPINE W/O CONTRAST [CT] Stat Exams 07/10/19 07:20 Completed XRAY PELVIS W/HIP 2-3VW LT [RAD] Stat Exams 07/10/19 07:19 Completed cxr [CHEST-1 VIEW] [RAD] Stat Exams 07/10/19 07:49 Completed CBC WITH ELECTRONIC DIFF [HEME] Stat Lab 07/10/19 07:40 Completed COMPREHENSIVE METABOLIC PANEL [CHEM] Stat Lab 07/10/19 07:40 Completed PROTIME WITH INR [COAG] Stat Lab 07/10/19 07:40 Completed PTT [COAG] Stat Lab 07/10/19 07:40 Completed URINALYSIS W/POSS RFLX CULT [URINALYSIS] Stat Lab 07/10/19 07:20 Uncollected Hydromorphone [Dilaudid] Med 07/10/19 07:19 Discontinued 0.5 mg IV NOW ONE Ondansetron [Zofran] Med 07/10/19 07:19 Discontinued 4 mg IV NOW ONE EKG [EKG] Stat Ther 07/10/19 07:20 Ordered Result Diagrams: 07/10/19 07:40 07/10/19 07:40 - CONSULTS/PCP/HOSPITALIST Notification #1 *Consult/PCP/Hospitalist*: Dr Winslow Time Discussed: 08:35 Reason/Comments: discussed with DIESEL MECHANIC for and asked for hospitalist admit and consult Consult Disposition: Admit #2 Consult: Jojo for Hospitalist, Dr Carl Time Discussed: 08:44 Consult Disposition: Will see in ED, Admit Departure - Departure Date of Disposition Decision: 07/10/19 Time of Disposition Decision: 08:37 DIAGNOSIS: Fall, Intertrochanteric fracture Disposition: ADMITTED INPATIENT 09 Certified Medical Emergency: Emergent Condition: Fair Referrals and Follow-Ups: None,PCP [Primary Care Provider] - - Critical Care Note This patient required my direct & personal management of CC.: No Attestation - Physician/ ALVARO Attestation Patient care was provided by Advanced Practice Provider:: No The physician spent face to face time with patient:: Yes Advanced Practice Provider documentation review:: Supervising physician onsite and consulted in the evaluation and care of this patient. The physician did have a face to face encounter with the patient.
[2019-07-10 08:37] LABS: AGAP 8; ALB/GLOB RATIO 1.5; ALKALINE PHOSPHATASE 83 U/L (32-104); BUN 16 mg/dL (8-22); CALCIUM 8.7 mg/dL (8.8-10.2); CHLORIDE 101 mmol/L (98-107); COSMO 280; CREATININE 0.7 mg/dL (0.5-0.9); ESTIMATED GFR > 60; GLUCOSE 125 mg/dL (70-104); GOT 19 U/L (10-30); GPT 12 U/L (10-36); SODIUM 139 mmol/L (136-145); TCO2 30 mmol/L (25-35); TOTAL BILIRUBIN 0.37 mg/dL (0.20-1.00); TOTAL PROTEIN 6.6 g/dL (6.3-8.3)
--- NOTE | 2019-07-10 09:13 | EKG Report ---
Test Performed on : 07/10/2019 08:58:09 AM Test Reason : surgical clearance Blood Pressure : / mmHG Vent. Rate : 081 BPM Atrial Rate : 107 BPM P-R Int : 000 ms QRS Dur : 074 ms QT Int : 370 ms P-R-T Axes : 000 027 -32 degrees QTc Int : 429 ms Atrial fibrillation. with premature ventricular or aberrantly conducted complexes. Septal infarct , age undetermined Abnormal ECG When compared with ECG of 18-JUL-2018 08:37, Septal infarct is now present T wave inversion no longer evident in Anterior leads Unconfirmed Result
[2019-07-10 09:19] LABS: URINE SOURCE CATH
[2019-07-10 09:33] LABS: BILIRUBIN URINE NEGATIVE (NEGATIVE); BLOOD URINE NEGATIVE (NEGATIVE); COLOR YELLOW; GLUCOSE URINE NEGATIVE (NEGATIVE); KETONE URINE NEGATIVE (NEGATIVE); LEUKOCYTES URINE TRACE (NEGATIVE); NITRITE URINE POSITIVE (NEGATIVE); PH URINE 5.5; PROTEIN URINE TRACE mg/dL (NEGATIVE); SP GRAVITY URINE 1.024; TURBIDITY URINE CLEAR (CLEAR); UR EPITHELIAL CELLS <10 /HPF (<10); URINE BACTERIA 4+ /HPF; URINE RBC <10 /HPF (<10); URINE WBC <10 /HPF (<10); UROBILINOGEN URINE NORMAL (NORMAL)
--- NOTE | 2019-07-10 10:10 | ED EKG INTERP ---
This chart was entered by Radha Mendoza Scribe, acting as scribe for Lemuel Faulkner MD. EKG Interpretation - EKG Time of EKG reading by physician:: 08:58 EKG Read and Signed by:: Lemuel Faulkner EKG Interpretation (*Must complete 3 of following elements*): Abnormal Rate: 81 Rhythm: afib with premature or aberrantly conducted complexes [place]: normal QRS: normal OR Interval: normal ST Wave: normal Comments: septal infarct, age undetermiend Attestation - Physician/ ALVARO Attestation Patient care was provided by Advanced Practice Provider:: No The physician spent face to face time with patient:: Yes Advanced Practice Provider documentation review:: Supervising physician onsite and consulted in the evaluation and care of this patient. The physician did have a face to face encounter with the patient. This chart was documented by the indicated scribe, (Radha Mendoza Scribe) and accurately reflects the services I performed and decisions made by me, Lemuel Faulkner MD, as attested by the provider's signature.
--- NOTE | 2019-07-10 10:15 | HISTORY AND PHYSICAL ---
PRIMARY CARE PHYSICIAN: [facility]. CHIEF COMPLAINT: Left hip pain since falling out of bed last night at group home. HISTORY OF PRESENTING ILLNESS: This is an 89-year-old female who presents to [facility] via EMS after she complained of left hip pain after falling out of her bed at the group home last night. Her left hip and pelvis x-ray showed a left hip intertrochanteric fracture. CT of the head showed no acute injury. Chest x-ray showed no definite acute chest pathology by plain radiograph, so she will be admitted for further evaluation and treatment with consultation with Orthopedics. It is noted that the patient is on Plavix, so that will be held until cleared by Surgery. PAST MEDICAL HISTORY: Hypertension, coronary artery disease, hyperlipidemia, dementia, atrial fibrillation, pseudogout. PAST SURGICAL HISTORY: CABG, hysterectomy, back surgery, and a partial colectomy. FAMILY HISTORY: Her mother of an CT. Her father had diabetes. SOCIAL HISTORY: She currently resides at [facility]. No tobacco, alcohol, or illicit drug use. ALLERGIES: Aspirin, Novocain, alcohol, codeine, Clorox, and vinegar. HOME MEDICATIONS: Vitamin D3 at 1000 units p.o. daily, Plavix 75 mg p.o. daily will be held, Azo cranberry tablet 1 p.o. daily, glucosamine 1000 mg p.o. daily, loratadine 10 mg p.o. daily, losartan 25 mg p.o. daily, melatonin 3 mg p.o. at bedtime, metoprolol 100 mg p.o. b.i.d., Thera M Plus 1 p.o. daily, ginseng 1 p.o. daily, pravastatin 40 mg p.o. at bedtime, liquid protein fortifier will be held, senna 8.6 mg p.o. b.i.d., sertraline 50 mg p.o. daily, and trazodone 25 mg p.o. at bedtime. IMAGING AND LABORATORY DATA: Laboratory data showed a white blood cell count of 9.32, hemoglobin 12.9, hematocrit 41.5, platelets 182,000. PT and INR of 14.2 and 1.08. Sodium 139, potassium 4, chloride 101, CO2 of 30, BUN of 16, creatinine 0.7, glucose 125. Urinalysis is pending. Left hip and pelvis x-ray showed a left hip intertrochanteric fracture. CT of the head and cervical spine showed no acute injury. Chest x-ray showed mild chronic-appearing interstitial thickening that is stable, as well as cardiomegaly, but no definite acute chest pathology by plain radiograph. EKG showed atrial fibrillation with PVCs at 83. REVIEW OF SYSTEMS: Denied any fever, chills, blurred vision, dizziness, chest pain, coughing, shortness of breath. Denied any abdominal pain, constipation, diarrhea, burning or hurting with urination. Was positive for pain to left hip. PHYSICAL EXAMINATION: GENERAL: This is an 89-year-old female who is lying in the bed, is very hard of hearing, answers most questions appropriately. Daughter also at the bedside and reviewed medical record. HEENT: Normocephalic, atraumatic. Normal ENT inspection. Oropharynx and nares are clear. Eyes: Pupils are equal, round, reactive to light and accommodation. Extraocular movements are intact. NECK: Normal inspection. Normal range of motion. LUNGS: Clear to auscultation bilaterally with equal lung expansion and chest wall movement. HEART: Irregular rate and rhythm, but no murmurs, rubs, or gallops. ABDOMEN: Soft, nontender, nondistended. Bowel sounds are present x4 quadrants. EXTREMITIES: Has 5/5 strength to bilateral upper extremities and right lower extremity. Of course, we were unable to assess the left side due to the hip fracture. NEUROLOGICAL: Cranial nerves II through XII appear grossly intact. ASSESSMENT: 1. Status post fall. 2. Left hip fracture. 3. Atrial fibrillation, history of, currently rate controlled. 4. Dementia. PLAN: She will be admitted to the surgical unit, placed on a healthy heart diet, indwelling Wood catheter, telemetry. Will consult Orthopedics. She will be given Dilaudid 1 mg IV every 3 hours p.r.n. for pain, SCDs for DVT prophylaxis. Will continue her home medications as previously identified. Again, hold her Plavix, and recheck a CBC and BMP in the a.m. Further orders after seen by attending and by it consultant. Is noted to be a DNR1 from [place]. Dictated by SHAWANDA To for Leonard Carl MD cc: MarySHAWANDA Kevin MD MTDD
[2019-07-10] MEDS ORDERED: TYLENOL PO PRN (10:38)
[2019-07-10] MEDS ORDERED: ZOFRAN IV PRN (10:38)
[2019-07-10] MEDS ORDERED: KEFZOL 1 GM/D5W 1 GM/50 ML IVPB IV ONE (12:48)
[2019-07-10] MEDS: DILAUDID IV PRN ×2 (13:05→22:37)
--- NOTE | 2019-07-10 15:54 | ORTHOPAEDICS CONSULTATION ---
DATE: 07/10/2019 CHIEF COMPLAINT: Left hip pain due to fall. HISTORY OF PRESENT ILLNESS: This is an 89-year-old female who came to the Emergency Department at [facility] after a fall yesterday and left hip pain. X-rays were obtained of the left hip and pelvis and showed a left intertrochanteric hip fracture. CT of the head showed no acute injury. PAST MEDICAL HISTORY: Positive for hypertension, CAD, hyperlipidemia, dementia, atrial fibrillation, pseudogout, and hardness of hearing. PAST SURGICAL HISTORY: Includes: CABG, hysterectomy, back surgery, and partial colectomy. SOCIAL HISTORY: The patient currently lives at [facility]. She denies tobacco, alcohol, or drug use. ALLERGIES: Include: Aspirin, novocaine, alcohol, codeine, Clorox, and vinegar. HOME MEDICATIONS: Include: Plavix 75 mg daily, glucosamine 1,000 mg daily, Claritin 10 mg daily, losartan 25 mg daily, melatonin 3 mg at bedtime, and metoprolol 100 mg b.i.d. She also takes pravastatin 40 mg at bedtime, as well as Zoloft 50 mg daily. IMAGING: X-rays of the left hip show a left intertrochanteric hip fracture. LABS: White blood cells 9.32, hemoglobin 12.9, hematocrit 41.5, and platelets 182. INR 1.08. Sodium 139, potassium 4, chloride 101, BUN 16, creatinine 0.7, and glucose 125. Urine showed positive for protein, nitrites, and leukocytes concurrent with a positive UTI. REVIEW OF SYSTEMS: A 10 point review of systems was performed and pertinent positives listed in the HPI. PHYSICAL EXAMINATION: General: The patient is awake and somewhat confused lying in the hospital bed. She is very hard of hearing. She does answer questions appropriately. There is no family at the bedside at this time. HEENT: The head is atraumatic, normocephalic. Neck: Supple. Lungs: There is equal chest expansion, rise and fall. Heart: There is an irregular rate and rhythm. The monitor shows atrial fibrillation. Abdomen: Soft and nondistended. Extremities: Left lower extremity exam: There is tenderness along the lateral and anterior joint lines of the hip. There is some swelling noted to the left proximal femur. There is shortening of the left lower extremity with external rotation. ASSESSMENT: 1. Fall with left intertrochanteric hip fracture. 2. Atrial fibrillation. 3. Dementia. PLAN: We plan to hopefully get her set up for surgery tomorrow. We will be placing an intertrochanteric fixation nail along the left femur. We will need to obtain consent with her family members before this is done. Risks and benefits of surgery were went over with the patient. She agrees to have the surgery done at this time. Dictated by SHAWANDA Tinoco for Oscar Winslow MD cc: SHAWANDA Tinoco MD
--- NOTE | 2019-07-10 20:06 | HISTORY AND PHYSICAL ---
ADDENDUM: HOSPITAL COURSE: I have seen and examined Ms. Grande today. Ms. Grande is a resident of [facility], who was brought to the emergency room after she sustained a fall last night. She started complaining of left hip pain. Upon presenting to the emergency department, imaging studies and workup has revealed an acute left intertrochanteric fracture. Her physical exams is also remarkable for a current blood pressure of 173/107, pulse of 92, respirations are 15. She is a 89-year-old elderly female who is in bed. She is in mild painful distress. Her mucous looks slightly dry. The left hip obviously looks remarkably more swollen and the left lower extremity is in external rotation. Pulses are present. Ms. peter Contreras also has irregularly irregular heart rate, but seems to be rate controlled.' HOME MEDICATIONS: Have also been reviewed. She denies any anticoagulation except for Plavix, which has been withheld. IMAGING STUDIES: Reveals a left hip intertrochanteric fracture. Chest x-ray does not show any acute disease. A CT scan of the head and neck was unremarkable. ASSESSMENT: 1. Status post mechanical fall resulting into a left hip intertrochanteric fracture. The patient has been evaluated by orthopedics and there is a plan for intervention tomorrow. This fracture is associated with comminution and displacement of the femur shaft. 2. Chronic atrial fibrillation, currently rate controlled. The patient is on a beta valente. We will continue on that. She is not on any anticoagulation because of history of falls. 3. Hypertension and dyslipidemia. We will continue with home medications. PERIOPERATIVE EVALUATION: Ms. Grande at this point denies any chest pain. No signs of any congestive heart failure. Denies any chronic liver or kidney disease. She is not on any chronic anticoagulation except for Plavix which is anti-platelet and has been withheld. Ms. Grande has a [id number] score of at least 3. She is obviously a moderate risk patient for a nonvascular orthopedic intervention. We think the procedure is emergent to preserve functionality of her lower extremity and we recommend surgery to proceed. Please refer to the details of the history and physical which has been dictated by the SUPERVISOR CARPENTERS in the chart. cc: MD LATOYA Draper
[2019-07-10] MEDS: PRAVACHOL PO SCH (22:36)
[2019-07-10] MEDS: SENOKOT PO SCH (22:36)
[2019-07-10] MEDS: DESYREL PO SCH (22:37)
[2019-07-10] MEDS: LOPRESSOR PO SCH (22:37)
[2019-07-10] MEDS ORDERED: LOPRESSOR IV ONE (23:01)
[2019-07-11] MEDS ORDERED: LOPRESSOR IV PRN (00:02)
--- NOTE | 2019-07-11 00:10 | EKG Report ---
Test Performed on : 07/10/2019 11:35:05 PM Test Reason : afib Blood Pressure : / mmHG Vent. Rate : 114 BPM Atrial Rate : 096 BPM P-R Int : 000 ms QRS Dur : 070 ms QT Int : 330 ms P-R-T Axes : 000 023 -84 degrees QTc Int : 454 ms Atrial fibrillation. with rapid ventricular response. with premature ventricular or aberrantly conduc gladys complexes. Nonspecific ST and T wave abnormality Abnormal ECG When compared with ECG of 10-JUL-2019 08:58, (Unconfirmed) Criteria for Septal infarct are no longer present Confirmed by Bernardo Ervin MD ([id number]) on 07/11/2019 9:00:52 AM
[2019-07-11 00:12] LABS: MAGNESIUM 2.1 mg/dL (1.5-2.7); POTASSIUM 4.3 mmol/L (3.5-5.1)
[2019-07-11] MEDS: MELATONIN PO SCH ×2 (01:38→20:17)
[2019-07-11] MEDS: LOPRESSOR PO SCH ×3 (01:39→20:16)
[2019-07-11] MEDS: SENOKOT PO SCH ×3 (01:40→20:17)
[2019-07-11] MEDS: DESYREL PO SCH ×2 (01:41→20:17)
[2019-07-11] MEDS: PRAVACHOL PO SCH ×2 (01:42→20:17)
[2019-07-11 06:22] LABS: BASO# 0.02 X1000 (0.0-0.2); BASO% 0.2 % (0.0-0.8); HEMATOCRIT 40.3 % (37.0-47.0); HEMOGLOBIN 12.2 g/dL (12.0-16.0); IMM GRAN# 0.02 X1000 (0.0-0.04); IMM GRAN% 0.2 % (0.0-0.5); LYMPH# 1.38 X1000 (1.2-3.4); LYMPH% 12.4 % (20.5-51.1); MCHC 30.3 g/dL (33-37); MCV 95.7 FL (81-99); MONO# 1.69 X1000 (0.11-0.59); MONO% 15.2 % (1.7-9.3); MPV 11.1 FL (7.4-10.4); NEUT# 7.99 X1000 (1.4-6.5); PLT 181 X1000 (130-400); RBC 4.21 XMIL (4.2-5.4); RDW 13.7 % (11.5-14.5)
[2019-07-11 06:42] LABS: AGAP 11; BUN 21 mg/dL (8-22); CALCIUM 9.2 mg/dL (8.8-10.2); CHLORIDE 105 mmol/L (98-107); COSMO 293; CREATININE 0.8 mg/dL (0.5-0.9); ESTIMATED GFR > 60; GLUCOSE 160 mg/dL (70-104); POTASSIUM 4.2 mmol/L (3.5-5.1); SODIUM 144 mmol/L (136-145); TCO2 28 mmol/L (25-35)
[2019-07-11] MEDS: PATIENT'S OWN MED PO SCH ×2 (09:12→09:13)
[2019-07-11] MEDS ORDERED: DIPRIVAN 1% ONE (09:12)
[2019-07-11] MEDS: VITAMIN D PO SCH (09:12)
[2019-07-11] MEDS: ZOLOFT PO SCH (09:12)
[2019-07-11] MEDS: CLARITIN PO SCH (09:13)
[2019-07-11] MEDS: COZAAR PO SCH (09:13)
[2019-07-11] MEDS: THERA M PLUS PO SCH (09:13)
[2019-07-11] MEDS: GLUCOSAMINE PO SCH (09:14)
[2019-07-11] MEDS ORDERED: XYLOCAINE-MPF 2% ONE (09:15)
[2019-07-11] MEDS ORDERED: NAROPIN 0.5% ONE (09:48)
[2019-07-11] MEDS ORDERED: SODIUM CHLORIDE 0.9% 30 ML ONE (09:48)
[2019-07-11] MEDS ORDERED: KEFZOL 2 GM/D5W 2 GM/50 ML IVPB ONE (09:51)
[2019-07-11] MEDS ORDERED: BREVIBLOC ONE (09:59)
[2019-07-11] MEDS ORDERED: ZOFRAN ONE ×2 (10:41→13:27)
[2019-07-11] MEDS: LOPRESSOR ONE ×4 (11:15→12:36)
[2019-07-11] MEDS: DILAUDID ONE ×3 (11:41→12:22)
[2019-07-11] MEDS ORDERED: OFIRMEV 1000 MG/ISOTONIC SOLN 1,000 MG/100 ML BOTTLE ONE (12:22)
[2019-07-11] MEDS ORDERED: DECADRON ONE (13:27)
[2019-07-11] MEDS ORDERED: ZOFRAN IV PRN (13:45)
[2019-07-11] MEDS ORDERED: MILK OF MAGNESIA PO PRN (13:45)
[2019-07-11] MEDS ORDERED: TYLENOL PO SCH (13:45)
[2019-07-11] MEDS ORDERED: CARDIZEM IV ONE (14:54)
[2019-07-11] MEDS: NS 1,000 ML IV SCH (15:20)
[2019-07-11] MEDS: CARDIZEM 100 MG/NS 100 MG/100 ML IVPB IV SCH ×2 (16:34→23:58)
[2019-07-11] MEDS: OXY IR PO PRN ×2 (17:32→23:12)
--- NOTE | 2019-07-11 17:33 | ORTHOPAEDICS PROGRESS NOTE ---
DATE: 07/11/2019 Ms. Grande is planned for surgery today. We will plan a TFN fixation of her left hip. Risks and benefits were discussed with the patient and family yesterday, and they are willing to proceed. cc: Oscar Winslow MD
[2019-07-11] MEDS: KEFZOL 1 GM/D5W 1 GM/50 ML IVPB IV SCH (17:41)
--- NOTE | 2019-07-11 19:26 | OPERATIVE NOTE ---
PROCEDURE DATE: 07/11/2019 PREOPERATIVE DIAGNOSIS: Left intertrochanteric hip fracture with 3 of 4-part hip fracture. POSTOPERATIVE DIAGNOSIS: Left intertrochanteric hip fracture with 3 of 4-part hip fracture. PROCEDURE: Closed reduction intramedullary nail fixation left femur and hip. SURGEON: Yola Winslow MD. MULTIPLE DRILL OPERATOR: SHAWANDA Tinoco. MrBrant Rizzo was necessary for proper retraction and manipulation of the leg. ANESTHESIA: General. COMPLICATION: None. PROCEDURE IN DETAIL: An 89-year-old female with a left intertrochanteric hip fracture who presents for surgical fixation and reduction. Risks and benefits were discussed with the patient and family and they are willing to proceed. She was taken the operating room and satisfactory anesthesia obtained. The left hip was prepped and draped on the [place] table. Gentle longitudinal traction and internal rotation roughly 0 degrees was utilized to reduce the hip near anatomically. After a time-out for patient, site, procedure, and extremity, a lateral incision was made proximal to the greater trochanter. Dissection was carried down to the tip of the greater trochanter. A comminuted fracture of the intertrochanteric region was visualized. A ball-tipped guidewire was passed down through the fracture site and down the intramedullary canal. This was reamed with a 12 mm reamer. A 360 x 11 nail was then inserted over the guidewire down the intramedullary canal of the femur under multiplanar image guidance. An accessory lateral portal was created and the helical blade guide pin advanced down to the tip of the lateral cortex. Under multiplanar image guidance, a guide pin was placed across the fracture site and into the central aspect of the femoral head with care taken to avoid articular penetration of the joint. This was reamed with the lateral cortex reamer and a helical blade inserted over this, securing proximal fixation. A 110 helical blade was selected. Afterwards, the antirotation screw was set and the guide removed from the proximal part of the nail. The C-arm was used to document acceptable reduction as well as alignment and hardware placement both in AP and lateral planes. Slight traction was released off the leg to maintain neutral alignment of the leg as well as leg length and 2 distal interlocking screws were placed from lateral to medial through small stab incisions under fluoroscopic guidance. One was placed in the static and 1 in the dynamic slot. Afterwards, the incisions were irrigated and closed with 3-0 nylon. Sterile dressings were applied and the patient was recovered from anesthesia and transferred to the recovery room in stable condition. No intraoperative complications were noted. Instrument count sponge count was correct at the time of closure. cc: Oscar Winslow MD
--- NOTE | 2019-07-11 20:06 | PROGRESS NOTE ---
DATE: 07/11/2019 SUBJECTIVE: This patient just had a left hip fracture repaired. She went to the OR and it looks like she had an intertrochanteric fixation nail of the left hip. She has been having atrial fibrillation with RVR. She has been getting multiple doses of IV metoprolol along with her medications. Since this is not working and the heart rate still in the 140s, I will put this patient on diltiazem drip and I will send her to the PVC unit. I will continue with her normal saline through her IV as well since she is not eating or drinking too much. Kidney function seems to be stable as well as the electrolytes. Yesterday's magnesium was 2.1 and potassium today is 4.2. OBJECTIVE: Vital Signs: Temperature 98.4 degrees, pulse 83, respiratory rate 16, blood pressure 118/72, oxygen saturation 99 on 3 L of nasal cannula. HEENT: Head normocephalic, no trauma. PERRLA. Neck: Supple. No JVD. No masses. Central trachea. LABORATORY: To auscultation. No wheezing. No rales.Abdomen: Soft, nontender, nondistended. No hepatosplenomegaly. Extremities: No edema. She does have a dressing on the left side, which is painful to palpation and mobilization. Neurological: This patient seems to be confused. She is following commands on and off. I am not quite sure if she has a baseline dementia, but apparently she does. ASSESSMENT AND PLAN: 1. Left intertrochanteric hip fracture status post intertrochanteric nail placement. She had this procedure done today. She has been on atrial fibrillation with rapid ventricular response today also and receiving multiple times beta valente multiple times. Apparently the heart rate now seems to be stable, so I will double-check with telemetry. If she is still having rapid ventricular response, probably I will send her to PVC. Otherwise, I will keep her on the floor. 2. Atrial fibrillation with rapid ventricular response, as above, now it is documented that the rate has been controlled. 3. Hypertension. Continue home medications. 4. Dyslipidemia. Aware. Continue home medications. For now we will continue with low-dose Lovenox. Her Plavix has been held. She does have a history of coronary artery bypass grafting, hysterectomy, back surgery and partial colectomy. cc: Greg Alvarado MD
[2019-07-11] MEDS: COLACE PO SCH (20:16)
[2019-07-11] MEDS: TYLENOL PO SCH (20:16)
[2019-07-11] MEDS: PERIDEX MT SCH (20:17)
[2019-07-11] MEDS: MORPHINE IV PRN (22:12)
[2019-07-12] MEDS: KEFZOL 1 GM/D5W 1 GM/50 ML IVPB IV SCH (03:09)
[2019-07-12] MEDS: NS 1,000 ML IV SCH ×3 (04:41→20:44)
[2019-07-12] MEDS: TYLENOL PO SCH ×3 (06:09→20:46)
[2019-07-12 06:35] LABS: HEMATOCRIT 33.5 % (37.0-47.0); HEMOGLOBIN 10.3 g/dL (12.0-16.0)
[2019-07-12 06:59] LABS: CALCIUM 8.5 mg/dL (8.8-10.2); POTASSIUM 4.3 mmol/L (3.5-5.1)
--- NOTE | 2019-07-12 08:55 | ORTHOPAEDICS PROGRESS NOTE ---
DATE: 07/12/2019 SUBJECTIVE: Ms. Grande is seen status post TFN fixation yesterday. Her incisions are clean and dry. OBJECTIVE: Hematocrit today is 33.5. She does have an increase in her dementia and confusion. Surgically, she appears to be stable. PLAN: Dr. Mendoza will be available for me over the weekend. Once she is medically stabilized, she can be transferred back to her [facility], partial weightbearing on the left lower extremity. We will follow up with her in roughly 10 to 14 days' time. cc: Oscar Winslow MD
[2019-07-12] MEDS: VITAMIN D PO SCH (08:56)
[2019-07-12] MEDS: LOPRESSOR PO SCH ×3 (08:56→23:04)
[2019-07-12] MEDS: THERA M PLUS PO SCH (08:56)
[2019-07-12] MEDS: CARDIZEM PO SCH ×4 (08:56→23:04)
[2019-07-12] MEDS: COZAAR PO SCH (08:56)
[2019-07-12] MEDS: SENOKOT PO SCH ×2 (08:56→20:46)
[2019-07-12] MEDS: CLARITIN PO SCH (08:56)
[2019-07-12] MEDS: ZOLOFT PO SCH (08:56)
[2019-07-12] MEDS: FERROUS SULFATE PO SCH (08:56)
[2019-07-12] MEDS: GLUCOSAMINE PO SCH (08:57)
[2019-07-12] MEDS: PATIENT'S OWN MED PO SCH ×2 (08:57)
[2019-07-12] MEDS: PERIDEX MT SCH ×2 (08:57→20:48)
[2019-07-12] MEDS: LOVENOX SUBQ SCH (08:57)
[2019-07-12] MEDS ORDERED: ROCEPHIN 1 GM in NS 50 ML IV SCH (09:15)
[2019-07-12] MEDS: CLINIMIX E 4.25%-5% SOLUTION 1,000 ML IV SCH (10:10)
--- NOTE | 2019-07-12 10:26 | PROGRESS NOTE ---
DATE: 07/12/2019 SUBJECTIVE: This patient seems to be confused, the same way that she was yesterday in the afternoon. She is following commands on and off but she is not answering any of my questions. She was transferred to the PVC unit due to atrial fibrillation RVR, Cardiology Department has been consulted. She is still on the Cardizem drip. OBJECTIVE: Vital Signs: Temperature 99.5 degrees, pulse 90, respiratory rate 18, blood pressure 139/66, oxygen saturation 97% on 3 L of nasal cannula. HEENT: Head normocephalic, no trauma. PERRLA. Neck: Supple, no JVD. No masses. Central trachea. Chest: Clear to auscultation. Some crepitus at the bases. Abdomen: Soft, nontender, nondistended. No hepatosplenomegaly. Extremities: Left thigh is covered with a dressing, seems to be clean. It is painful to palpation and mobilization. She is able to wiggle her toes. Neurological: This patient is alert. She is awake, but she is not answering any of my questions. She is following commands on and off. I am not sure if this patient has a baseline dementia, but she seems to be confused. LABORATORY: Hemoglobin 10.3, hematocrit 33.5. Sodium 144, potassium 4.3, chloride 106, bicarbonate 29, BUN 27, creatinine 1, glucose 184, calcium 8.5. Microbiology showed a gram-negative silvino in the urine. Since I cannot know if the this patient has dysuria or urinary symptoms I will put this patient on ceftriaxone and I will wait for the final sensitivity. ASSESSMENT AND PLAN: 1. Intertrochanteric hip fracture status post intertrochanteric nail placement postoperative day #1. 2. She has been placed in the PVC unit because of the atrial fibrillation rapid ventricular response, rate has been controlled now. Cardiology Department will be consulted. Before coming to the hospital. She was on Plavix as well. 3. Atrial fibrillation with rapid ventricular response, as above. I do not think she was on anticoagulation at home. It looks like she was on Plavix though. We will continue to monitor. Cardiology Department has been consulted. 4. Urinary tract infection. I am not sure if this patient is symptomatic or not because she is confused. I will start treatment with ceftriaxone. She has been getting antibiotics. She has been on Kefzol already. 5. Hypertension continue home medication. 6. Dyslipidemia aware. DISPOSITION: For now, we will continue with same management. She is not eating too much, just a little bit of apple sauce, so I will put this patient on Clinimix and I will continue with the normal saline. I will get an x-ray tomorrow morning. We will monitor. cc: Greg Alvarado MD
[2019-07-12] MEDS: MORPHINE IV PRN ×3 (10:53→19:43)
--- NOTE | 2019-07-12 14:24 | CARDIOLOGY CONSULTATION ---
DATE: 07/12/2019 CONSULTATION REQUESTED BY: Hospitalist service. REASON FOR CONSULTATION: Is atrial fibrillation with rapid response. HISTORY: Ms. Grande is an unfortunate 89-year-old female who is a jail resident since July of 2018. The patient was placed there by the daughter because she had severe arthritis and the daughter could not handle her at home due to her poor mobility. In addition, the patient has dementia and is moderately advanced. The patient has been known to have atrial fibrillation for a long time. The patient was at the jail on the day of her admission and according to the staff at the jail, she got up, tried to walk a little more than usual and then she fell breaking her left hip. A left hip intertrochanteric fracture was noted and then orthopedic surgery, Dr. Thaddeus Winslow was consulted and he performed a left intertrochanteric closed reduction, intramedullary nail fixation of the left femur and hip. That was done yesterday. Following the surgery, of course, they noted atrial fibrillation with rapid response and that prompted this consultation. In addition, they have done a urinalysis on her on July 10 and the report is that the patient has E coli which is ESBL positive. The only antibiotic sensitive or available for her is the imipenem, trimethoprim or nitrofurantoin. The patient at this time is very sedated. Under the effect of pain medications, minimally verbal. Daughter is at the bedside and she is very familiar with her case. She states that the patient has not complained of any chest pain, dyspnea, swelling, or anything that could be construed as a change in cardiac status prior to the hospital admission. PAST MEDICAL HISTORY: Positive for coronary heart disease. She has been followed by Dr. Corona really up until July 2016. The patient had undergone coronary bypass surgery in September of 2010, double bypass, mammary graft to LAD, vein graft to posterior descending branch. The patient has had atrial fibrillation since 2011. This is permanent. She has been on anticoagulation, warfarin. The last time she saw Dr. Corona which is 3 years ago. There has been no more follows with him. The patient has hypertension, hyperlipidemia. The patient has arthritis and she has very poor mobility. PAST SURGICAL HISTORY: Positive for colectomy, hysterectomy, tonsillectomy, the open-heart procedure, cataract surgery, back surgery, and carpal tunnel release surgery. SOCIAL HISTORY: She is a for the past 18 years. She had 3 children. Never been a smoker nor a drinker. FAMILY HISTORY: Positive for heart disease in father. MEDICATIONS: [facility] medications at the time of this admission include: Trazodone 25 mg at bedtime, Sertraline 50 mg at bedtime, Pravastatin 40 mg at bedtime, metoprolol 1 tablet twice a day, melatonin 3 mg at bedtime, Cozaar 25 mg daily, loratadine 10 mg daily, clopidogrel 75 daily, acetaminophen 650 daily. ALLERGIES: Aspirin, codeine, alcohol, Clorox, vinegar and procaine. REVIEW OF SYSTEMS: Basically, this patient is a jail resident with minimal mobility, dementia, and chronic arthritis. Nothing else can be gathered from her. PHYSICAL EXAMINATION: Vital signs: Blood pressure 124/57, temperature 99 degrees, pulse 81, respirations 16. Patient is arousable but very lethargic, pale looking, elderly, in no distress. HEENT: Unremarkable. Chest: Symmetrical breath sounds. No rales. Of note, chest x- ray done on the showed mild chronic appearing interstitial thickening, stable as well as cardiomegaly. No acute chest pathology. Heart: Sounds are irregularly irregular. I do not hear a gallop or murmur. Abdomen: Nontender soft. Extremities: Showed good palpable pulses. No edema. Neurological: Follows commands to some extent. Neurological exam is very limited because patient is under the effect of narcotic pain medications. She is very lethargic. BLOOD WORK: Sodium 144, potassium 4.3, BUN 27, creatinine 1.0. IMPRESSION: 1. Patient presented to the hospital after suffering a fall at the jail with an intertrochanteric fracture in the left hip. She is status post nail fixation on 07/11/2019. This is the 1st postop day. 2. Permanent atrial fibrillation with an episode of rapid response. Right now it is controlled with IV Cardizem. 3. History of severe coronary heart disease, post double bypass (CABG) in 2010. Clinically stable angina pectoris. 4. 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 [facility] resident. 5. Urinary tract infection with Escherichia coli multi resistant extended spectrum beta- lactamases positive. 6. History of hypertension. 7. History of hyperlipidemia. RECOMMENDATION: At this time, I would suggest to continue Cardizem as order to try to control her heart rate. When the patient is able to tolerate oral medications, she needs to be put back on her usual beta valente. As far as long-term anticoagulation, this is a very risky situation because of her tendency to fall. I would prefer not to anticoagulate her because of the risk of bleeding. At this time, no other intervention. The patient can be followed by the primary internal medicine service. There is no need at this point for any further cardiac evaluation or testing. cc: Mendoza Castaneda MD MTDD
[2019-07-12] MEDS: HALDOL IV PRN (19:43)
[2019-07-12] MEDS: COLACE PO SCH (20:45)
[2019-07-12] MEDS: PRAVACHOL PO SCH (20:46)
[2019-07-12] MEDS: MELATONIN PO SCH (20:46)
[2019-07-12] MEDS: DESYREL PO SCH (20:47)
[2019-07-13] MEDS: DESYREL PO SCH ×3 (00:15→22:35)
[2019-07-13] MEDS: COLACE PO SCH ×3 (00:15→22:35)
[2019-07-13] MEDS: TYLENOL PO SCH ×6 (00:16→22:36)
[2019-07-13] MEDS: SENOKOT PO SCH ×4 (00:16→22:36)
[2019-07-13] MEDS: MELATONIN PO SCH ×3 (00:16→22:35)
[2019-07-13] MEDS: PERIDEX MT SCH ×4 (00:16→22:35)
[2019-07-13] MEDS: PRAVACHOL PO SCH ×3 (00:16→22:36)
[2019-07-13] MEDS: NS 1,000 ML IV SCH ×3 (01:20→14:56)
[2019-07-13] MEDS: CARDIZEM 100 MG/NS 100 MG/100 ML IVPB IV SCH ×2 (01:21→10:39)
[2019-07-13] MEDS: CARDIZEM PO SCH ×5 (01:21→22:06)
[2019-07-13] MEDS: MORPHINE IV PRN ×3 (04:04→23:44)
[2019-07-13] MEDS: LOVENOX SUBQ SCH (05:50)
[2019-07-13 06:05] LABS: BASO# 0.02 X1000 (0.0-0.2); BASO% 0.1 % (0.0-0.8); EOS# 0.05 X1000 (0.0-0.7); EOS% 0.3 % (0.0-10.0); HEMATOCRIT 32.1 % (37.0-47.0); HEMOGLOBIN 9.3 g/dL (12.0-16.0); IMM GRAN# 0.02 X1000 (0.0-0.04); IMM GRAN% 0.1 % (0.0-0.5); LYMPH# 1.12 X1000 (1.2-3.4); LYMPH% 7.6 % (20.5-51.1); MCH 28.5 PG (27-31); MCV 98.5 FL (81-99); MONO# 2.32 X1000 (0.11-0.59); MONO% 15.8 % (1.7-9.3); MPV 11.2 FL (7.4-10.4); NEUT# 11.15 X1000 (1.4-6.5); NEUT% 76.1 % (42.2-75.2); PLT 151 X1000 (130-400); RBC 3.26 XMIL (4.2-5.4); RDW 13.8 % (11.5-14.5); WBC 14.68 X1000 (4.8-10.8)
[2019-07-13 06:33] LABS: AGAP 7; ALB/GLOB RATIO 1.1; ALBUMIN 2.9 g/dL (3.5-5.0); ALKALINE PHOSPHATASE 55 U/L (32-104); BUN 32 mg/dL (8-22); CALCIUM 8.6 mg/dL (8.8-10.2); CHLORIDE 105 mmol/L (98-107); COSMO 289; CREATININE 0.8 mg/dL (0.5-0.9); ESTIMATED GFR > 60; GLUCOSE 186 mg/dL (70-104); GOT 38 U/L (10-30); GPT 13 U/L (10-36); SODIUM 139 mmol/L (136-145); TCO2 27 mmol/L (25-35); TOTAL BILIRUBIN 0.37 mg/dL (0.20-1.00); TOTAL PROTEIN 5.6 g/dL (6.3-8.3)
--- NOTE | 2019-07-13 07:13 | Diag Imaging Result Doc PS360 ---
EXAM: CHEST-PORTABLE HISTORY: SOB TECHNIQUE: Single view COMPARISON: 07/10/2019 FINDINGS: Poor inspiratory effort. The heart is enlarged. Sternal wires are present. No consolidation. Mild increased interstitial markings similar to the prior study. No pleural effusions identified. IMPRESSION: Stable chest Electronically signed by Luis Odom 07/13/2019 7:11 AM
[2019-07-13] MEDS: CLARITIN PO SCH (09:58)
[2019-07-13] MEDS: FERROUS SULFATE PO SCH (09:58)
[2019-07-13] MEDS: GLUCOSAMINE PO SCH (09:59)
[2019-07-13] MEDS: OXY IR PO PRN (09:59)
[2019-07-13] MEDS: ZOLOFT PO SCH (09:59)
[2019-07-13] MEDS: LOPRESSOR PO SCH ×3 (10:00→22:35)
[2019-07-13] MEDS: THERA M PLUS PO SCH (10:00)
[2019-07-13] MEDS: VITAMIN D PO SCH (10:00)
[2019-07-13] MEDS: COZAAR PO SCH (10:00)
[2019-07-13] MEDS: CLINIMIX E 4.25%-5% SOLUTION 1,000 ML IV SCH (10:01)
--- NOTE | 2019-07-13 10:01 | PROGRESS NOTE ---
DATE: 07/13/2019 SUBJECTIVE: This patient is lying in bed. She is sleepy but arousable. She is not answering any of my questions or following commands. She says no when I try to move any of her extremities. I asked her if she is hungry and she says no also, but I am not quite sure if she knows exactly what she wants to say. She has a history of severe dementia and I talked to the family yesterday about it. We are trying with physical therapy. Apparently, she has not been walking too much at home. She just had a left hip fracture repair. I put her on Clinimix and normal saline since she is not eating too much and she is still on the diltiazem drip. Cardiology Department on board. Yesterday, apparently she was she was not taking her medications during the night. There is a positive urine culture that showed E coli ESBL positive so I will stop the ceftriaxone and put her on ertapenem. OBJECTIVE: Vital Signs: Temperature 99.8 degrees, pulse 115, respiratory rate 21, blood pressure 128/91. Oxygen saturation 98 on 3 L of nasal cannula. HEENT: Head normocephalic, no trauma. PERRLA. Neck: Supple. No JVD. No masses. Central trachea. Chest: Clear to auscultation. Some crepitus at the bases. Abdomen: Soft, nontender, nondistended. No hepatosplenomegaly. Extremities: Left thigh is covered with a dressing, seems to be clean. Is painful to palpation. She is not following commands. Neurological: This patient is sleepy but arousable. She is not following commands for me today. I had a conversation with the family and apparently she has severe dementia and she has not been able to walk too much recently. She seems to be confused. LABORATORY DATA: WBC 14.6, hemoglobin 9.3, hematocrit 32.1, platelets 151,000. Sodium 139, potassium 4, chloride 105, bicarbonate 27, BUN 32, creatinine 0.8, glucose 186, calcium 8.6. Albumin 2.9. ASSESSMENT AND PLAN: 1. Intertrochanteric hip fracture status post intertrochanteric nail placement, postoperative day #2. We will continue with same management, physical therapy. 2. She has been placed in the PVC unit because of atrial fibrillation with rapid ventricular response. The rate is better controlled but apparently they continued with the diltiazem drip during the night. Cardiology Department following this patient. 3. Atrial fibrillation with rapid ventricular response, as above. She is not on anticoagulation at home. She is on Plavix. Per the family, she is not on blood thinners due to her high risk of falling. 4. Urinary tract infection with a positive urine culture that showed extended-spectrum beta- lactamase Escherichia coli, I have stopped the ceftriaxone and I put her on ertapenem. 5. Hypertension. Continue home medication. 6. Dyslipidemia. Aware. 7. Altered mental status/dementia. It looks like she has a quite advanced dementia. She is not following commands for me or answering any of my questions. We will continue physical therapy. cc: Greg Alvarado MD
[2019-07-13] MEDS: HALDOL IV PRN (10:12)
[2019-07-13] MEDS: PATIENT'S OWN MED PO SCH ×2 (10:41)
[2019-07-13] MEDS: INVANZ 1 GM/NS 1 GM/50 ML IVPB IV SCH (11:09)
--- NOTE | 2019-07-13 13:54 | CARDIOLOGY PROGRESS NOTE ---
DATE: 07/13/2019 SUBJECTIVE: Ms. Grande opens her eyes and localizes the examiner but does not respond otherwise during the physical. PHYSICAL EXAMINATION: She is afebrile. Heart rates overnight have been documented a little bit elevated in the low 100s to 110s. Reportedly the patient would not take her medications. Blood pressure 190/124 this morning.General: She is in no acute distress. Cardiovascular: She is in an irregularly irregular rhythm. She has no murmurs. No lower extremity edema. Chest: Sounds clear to auscultation bilaterally with poor effort. Abdomen: Soft, nontender. PERTINENT DATA: White count is 14.7, hematocrit is 3,2 platelet count is 151,000. Sodium 139, potassium 4, BUN 32 creatinine is 0.8. ASSESSMENT: Ms. Grande is an 89-year-old female with permanent atrial fibrillation and suffered an intertrochanteric fracture of the left hip. PLAN: At this point, she is on oral medications. The limitations to treating her are her compliance with medical therapy. I do not have any other recommendations for the patient. She is on prophylactic Lovenox. Please contact us if we can be of further assistance this weekend. cc: Rafy Echeverria MD
[2019-07-14] MEDS: CARDIZEM PO SCH ×4 (01:29→19:47)
[2019-07-14] MEDS: MORPHINE IV PRN (02:27)
[2019-07-14] MEDS: CARDIZEM 100 MG/NS 100 MG/100 ML IVPB IV SCH (03:25)
[2019-07-14] MEDS: TYLENOL PO SCH ×4 (04:02→21:33)
[2019-07-14] MEDS: LOVENOX SUBQ SCH (05:14)
[2019-07-14] MEDS: HALDOL IV PRN (05:14)
[2019-07-14] MEDS: NS 1,000 ML IV SCH (05:50)
[2019-07-14 05:59] LABS: BASO# 0.02 X1000 (0.0-0.2); BASO% 0.2 % (0.0-0.8); HEMATOCRIT 30.6 % (37.0-47.0); HEMOGLOBIN 9.1 g/dL (12.0-16.0); IMM GRAN# 0.03 X1000 (0.0-0.04); IMM GRAN% 0.3 % (0.0-0.5); LYMPH# 1.35 X1000 (1.2-3.4); LYMPH% 12.9 % (20.5-51.1); MCH 29.8 PG (27-31); MCHC 29.7 g/dL (33-37); MCV 100.3 FL (81-99); MONO# 1.24 X1000 (0.11-0.59); MONO% 11.9 % (1.7-9.3); MPV 10.9 FL (7.4-10.4); NEUT# 7.69 X1000 (1.4-6.5); NEUT% 73.7 % (42.2-75.2); PLT 156 X1000 (130-400); RBC 3.05 XMIL (4.2-5.4); RDW 13.7 % (11.5-14.5); WBC 10.43 X1000 (4.8-10.8)
[2019-07-14 06:51] LABS: AGAP 13; BUN 38 mg/dL (8-22); CALCIUM 8.3 mg/dL (8.8-10.2); CHLORIDE 113 mmol/L (98-107); COSMO 307; CREATININE 0.8 mg/dL (0.5-0.9); ESTIMATED GFR > 60; GLUCOSE 162 mg/dL (70-104); POTASSIUM 4.7 mmol/L (3.5-5.1); SODIUM 148 mmol/L (136-145); TCO2 22 mmol/L (25-35)
[2019-07-14] MEDS: D5W 1,000 ML IV SCH (07:21)
[2019-07-14] MEDS: CLINIMIX E 4.25%-5% SOLUTION 1,000 ML IV SCH ×2 (07:22→13:37)
[2019-07-14] MEDS ORDERED: MORPHINE IV PRN (08:06)
[2019-07-14] MEDS ORDERED: OXY IR PO PRN (08:07)
[2019-07-14] MEDS: VITAMIN D PO SCH (08:17)
[2019-07-14] MEDS: THERA M PLUS PO SCH (08:17)
[2019-07-14] MEDS: COZAAR PO SCH (08:17)
[2019-07-14] MEDS: LOPRESSOR PO SCH ×3 (08:17→21:34)
[2019-07-14] MEDS: GLUCOSAMINE PO SCH (08:17)
[2019-07-14] MEDS: ZOLOFT PO SCH (08:18)
[2019-07-14] MEDS: SENOKOT PO SCH ×3 (08:18→21:33)
[2019-07-14] MEDS: FERROUS SULFATE PO SCH (08:18)
[2019-07-14] MEDS: INVANZ 1 GM/NS 1 GM/50 ML IVPB IV SCH (08:18)
[2019-07-14] MEDS: CLARITIN PO SCH (08:18)
--- NOTE | 2019-07-14 08:27 | PROGRESS NOTE ---
DATE: 07/14/2019 SUBJECTIVE: This patient is lying comfortably in bed. Today, she seems to be awake. She was able to say her name. She is not following commands for me. I am not sure if this is because she is not able to listen. She has a severe hearing problem. She is complaining of pain but I will try to decrease the dose of the pain medications so she can be more awake. She is not agitated at this moment. Since her sodium is elevated, I will put this patient on D5W and I will continue with Clinimix. She is not eating too much. I will continue with ertapenem for her ESBL E. coli urinary tract infection. She has been refusing taking her medications on and off. She has been placed back on the Cardizem drip. Her heart rate was around 128. Cardiology department following this patient. OBJECTIVE: Vital Signs: Temperature 98.5 degrees, pulse 128, respiratory rate 16, blood pressure 117/78, oxygen saturation 98 on 3 L of nasal cannula. HEENT: Head normocephalic. No trauma. PERRLA. Neck: Supple. No JVD. No masses. Central trachea. Chest: Clear to auscultation. Some crepitus at the bases. Abdomen: Soft, nontender, nondistended. No hepatosplenomegaly. Extremities: Left thigh is covered with a dressing. It seems to be clean. It is painful to palpation. She is not following commands for me. Neurological Examination: This patient is awake. She was able to say her name. She is not following commands for me, probably because she is not able to listen due to her severe hearing problems. I already had a conversation with the family and she does have severe dementia. She has not been able to walk too much recently and she still seems to be having some confusion. Laboratory: WBC 10.4, hemoglobin 9.1, hematocrit 30.6, platelets 156,000. Sodium 148, potassium 4.7, chloride 113, bicarbonate 22, BUN 38, creatinine 0.8, glucose 162, calcium 8.3. ASSESSMENT AND PLAN: 1. Intertrochanteric hip fracture, status post intertrochanteric nail placement, postoperative day #3. Continue with the same management. Continue physical therapy. 2. Atrial fibrillation with rapid ventricular response. She has been placed back on a Cardizem drip because she has been refusing taking her treatment. Cardiology department on board. We will continue to monitor. As per the family, she has not been on anticoagulation at home due to her frequent falls, but she has been on Plavix. 3. Extended-spectrum B-lactamase Escherichia coli urinary tract infection. I have started this patient on ertapenem. White blood cell count seems to be improving and actually today, it is normal, decreased from 14 to 10. 4. Hypertension. Continue home medication. 5. Dyslipidemia. Aware. 6. Altered mental status in a patient with dementia. It is hard to evaluate this patient because of her severe hearing impairment. She was able to say her name today but it looks like she has quite severe dementia already. 7. Hypernatremia. I will place this patient on D5W. She is not eating or drinking too much. Also, we will continue with Clinimix for now. 8. Physical deconditioning. Continue physical therapy. cc: Greg Alvarado MD
[2019-07-14] MEDS: PERIDEX MT SCH ×2 (08:51→21:34)
[2019-07-14] MEDS: PATIENT'S OWN MED PO SCH ×2 (08:51)
[2019-07-14] MEDS: DESYREL PO SCH ×2 (19:50→21:34)
[2019-07-14] MEDS: PRAVACHOL PO SCH ×2 (19:51→21:33)
[2019-07-14] MEDS: COLACE PO SCH ×2 (19:51→21:33)
[2019-07-14] MEDS: MELATONIN PO SCH ×2 (19:51→21:34)
[2019-07-15] MEDS: CARDIZEM PO SCH ×4 (01:25→21:14)
[2019-07-15] MEDS: HALDOL IV PRN (02:21)
[2019-07-15] MEDS: CLINIMIX E 4.25%-5% SOLUTION 1,000 ML IV SCH ×2 (03:25→10:23)
[2019-07-15] MEDS: D5W 1,000 ML IV SCH (03:25)
[2019-07-15] MEDS: TYLENOL PO SCH ×4 (05:17→22:14)
[2019-07-15] MEDS: LOVENOX SUBQ SCH (05:17)
[2019-07-15] MEDS ORDERED: CALMOSEPTINE OINTMENT TOP PRN (05:49)
[2019-07-15 06:34] LABS: BASO# 0.02 X1000 (0.0-0.2); BASO% 0.2 % (0.0-0.8); EOS# 0.36 X1000 (0.0-0.7); EOS% 3.4 % (0.0-10.0); HEMATOCRIT 30.6 % (37.0-47.0); HEMOGLOBIN 9.2 g/dL (12.0-16.0); IMM GRAN# 0.03 X1000 (0.0-0.04); IMM GRAN% 0.3 % (0.0-0.5); LYMPH# 1.45 X1000 (1.2-3.4); LYMPH% 13.7 % (20.5-51.1); MCH 29.6 PG (27-31); MCHC 30.1 g/dL (33-37); MCV 98.4 FL (81-99); MONO# 1.32 X1000 (0.11-0.59); MONO% 12.5 % (1.7-9.3); MPV 10.7 FL (7.4-10.4); NEUT# 7.42 X1000 (1.4-6.5); NEUT% 69.9 % (42.2-75.2); PLT 174 X1000 (130-400); RBC 3.11 XMIL (4.2-5.4); RDW 13.5 % (11.5-14.5)
--- NOTE | 2019-07-15 07:00 | Diag Imaging Result Doc PS360 ---
CHEST-PORTABLE - 07/15/2019 INDICATION: dyspnea COMPARISON: 07/13/2019 FINDINGS: Stable sternotomy wires. Stable cardiomegaly and pulmonary vascular congestion. Stable hazy infiltrate throughout the left lung base mainly in the left lower lobe. No pneumothorax or significant pleural effusion. IMPRESSION: No change from prior. Electronically signed by Everardo Hernandez 07/15/2019 6:58 AM
[2019-07-15 07:04] LABS: AGAP 11; ALB/GLOB RATIO 0.8; ALBUMIN 2.6 g/dL (3.5-5.0); ALKALINE PHOSPHATASE 73 U/L (32-104); BUN 31 mg/dL (8-22); CALCIUM 7.9 mg/dL (8.8-10.2); CHLORIDE 106 mmol/L (98-107); COSMO 293; CREATININE 0.5 mg/dL (0.5-0.9); ESTIMATED GFR > 60; GLUCOSE 194 mg/dL (70-104); GOT 44 U/L (10-30); GPT 24 U/L (10-36); MAGNESIUM 2.2 mg/dL (1.5-2.7); PHOSPHORUS 2.7 mg/dL (2.7-4.5); SODIUM 141 mmol/L (136-145); TCO2 24 mmol/L (25-35); TOTAL BILIRUBIN 0.72 mg/dL (0.20-1.00); TOTAL PROTEIN 5.7 g/dL (6.3-8.3)
--- NOTE | 2019-07-15 08:23 | CARDIOLOGY PROGRESS NOTE ---
DATE: 07/15/2019 CHIEF COMPLAINT: Irregular heartbeat, dyspnea. SUBJECTIVE: Ms. Grande is lethargic and not very responsive. According to her nurse, she was agitated this morning. Heart rate appears to be better controlled. Pain in hip seems to be better. OBJECTIVE: Temperature is 99.8, pulse 85, respirations 23, blood pressure 144/65. The patient is awake, in no distress, eating breakfast. HEENT is unremarkable. Chest: Diminished breath sounds at bases. Heart sounds irregularly irregular. No gallop or murmur. Abdomen is nontender. Extremities: no edema. Neurologic: lethargic. does not quite follow commands. DIAGNOSTIC DATA: Blood work shows sodium 141, potassium 4.0, BUN is 31, creatinine 0.5. Hemoglobin is 9.2, hematocrit 30.6. IMPRESSION: 1. The patient presented with a fall, suffering left hip intertrochanteric fracture, status post closed reduction and intramedullary nail fixation of left femur and hip. Today would be her postoperative day number 4. 2. Atrial fibrillation with rapid response. This is a chronic or permanent atrial fibrillation.Rate is better controlled. 3. History of severe coronary heart disease with previous double bypass. 4. Urinary tract infection with extended spectrum beta lactamase resistant organism. 5. History of hypertension. 6. Dementia and altered mental status. RECOMMENDATIONS: At this time, the patient continues to be confused, and her heart rate is better controlled. At this time, we are not going to suggest any changes. She is presently taking diltiazem and losartan, and that seems to be controlling her rate. She is also on metoprolol. We will observe her clinical course. cc: Mendoza Castaneda MD [facility]
[2019-07-15] MEDS: INVANZ 1 GM/NS 1 GM/50 ML IVPB IV SCH (10:23)
[2019-07-15] MEDS: LOPRESSOR PO SCH ×2 (10:34→21:14)
[2019-07-15] MEDS: THERA M PLUS PO SCH (10:35)
[2019-07-15] MEDS: GLUCOSAMINE PO SCH (10:35)
[2019-07-15] MEDS: ZOLOFT PO SCH (10:35)
[2019-07-15] MEDS: FERROUS SULFATE PO SCH (10:35)
[2019-07-15] MEDS: COZAAR PO SCH (10:35)
[2019-07-15] MEDS: SENOKOT PO SCH ×2 (10:35→21:14)
[2019-07-15] MEDS: VITAMIN D PO SCH (10:35)
[2019-07-15] MEDS: CLARITIN PO SCH (10:35)
--- NOTE | 2019-07-15 11:11 | Diag Imaging Result Doc PS360 ---
EXAM: CHEST-PORTABLE INDICATION: SOB TECHNIQUE: One view COMPARISON: 07/15/2019 FINDINGS: The mild hazy left lower lobe opacity is essentially stable. Mild pulmonary venous congestion is unchanged. No new consolidation is identified. Cardiac silhouette is stable. IMPRESSION: Stable chest. Electronically signed by Oscar Mcdonough 07/15/2019 11:08 AM
--- NOTE | 2019-07-15 11:34 | PROGRESS NOTE ---
DATE: 07/15/2019 SUBJECTIVE: This morning, Ms. Grande refers to be doing a little better. The daughter and a gentleman was at the bedside at the time of the encounter. Ms. Grande herself is extremely hard of hearing. According to the attending nurse, she hardly ate anything today. Per the nurse, she did take a few bites of sausage yesterday. OBJECTIVE: Current Vital Signs: Blood pressure is 124/55, pulse of 83, respirations are 19, temperature is 100.1 degrees, patient is saturating 99% on 4 L of oxygen. General Examination: Ms. Grande is an 89-year-old, elderly, female. She is in bed. She looks slightly in mild respiratory distress. HEENT: Mucosa is pink and moist. Anicteric. Acyanotic. Neck: Supple. No JVD. Chest: Air entry is bilaterally reduced. There are some crackles in the posterior lung tatum. Cardiovascular: Irregularly irregular and tachycardic. Abdomen: Soft. Distended but nontender. Bowel sounds present. Extremities: No pedal edema. The left hip has been reviewed. The surgical incision is affronted with clips. It looks clean. ACCOUNT COORDINATOR: The patient is awake, alert, extremely hard of hearing, but she is able to follow some basic commands. Laboratory Data: WBC is 10.60, hemoglobin is 9.2, platelet count of 174,000. Chemistry is also reviewed and, for the most part, unremarkable. The patient's current medications have also been reviewed. ASSESSMENT: 1. Status post mechanical fall resulting in an intertrochanteric hip fracture of the left. The patient is status post intertrochanteric nail placement. Today is day 4 postop. Physical therapy is on board. 2. Chronic atrial fibrillation which went into rapid ventricular response. The patient is on a Cardizem drip and also oral medications. Cardiology is on board. 3. Extended-spectrum B-lactamase urinary tract infection. The patient is really not able to tell us about being symptomatic. However, with her current unstable clinical status, I think it is reasonable to continue treating for a total of 5 days. Wood catheter will be removed. 4. Altered mental status during the hospital course, most likely delirium on the background of dementia. Patient seems to be at baseline. 5. Nutritional status. Ms. Grande is hardly eating anything. Clinimix was started on her yesterday. Unfortunately, this morning, she seems to be slightly tachypneic. Chest x-ray early on did show pulmonary congestion. I am afraid some of the fluid is getting into her lungs so we are going to repeat a chest x-ray but we will also go ahead and discontinue the current Clinimix. We have encouraged Ms. Grande to utilize the enteral route for nutrition. She is also on nutritional supplements. We have added Megace to boost her appetite. 6. I have discussed the current plan with the family and also with her nurse. cc: Leonard Carl MD
[2019-07-15] MEDS: MEGACE LIQUID PO SCH ×3 (11:42→22:10)
[2019-07-15] MEDS: PATIENT'S OWN MED PO SCH ×2 (15:53→15:54)
[2019-07-15] MEDS: PERIDEX MT SCH ×3 (15:54→22:11)
[2019-07-15] MEDS ORDERED: REMERON PO SCH (21:00)
[2019-07-15] MEDS: DESYREL PO SCH (21:14)
[2019-07-15] MEDS: COLACE PO SCH ×2 (21:15→22:13)
[2019-07-15] MEDS: PRAVACHOL PO SCH (21:15)
[2019-07-15] MEDS: MELATONIN PO SCH (21:15)
[2019-07-16] MEDS: CARDIZEM PO SCH ×4 (02:28→20:58)
[2019-07-16] MEDS: HALDOL IV PRN (02:28)
[2019-07-16] MEDS: LOVENOX SUBQ SCH (05:30)
[2019-07-16] MEDS: COZAAR PO SCH (08:48)
[2019-07-16] MEDS: VITAMIN D PO SCH (08:49)
[2019-07-16] MEDS: TYLENOL PO SCH ×2 (08:49→19:17)
[2019-07-16] MEDS: FERROUS SULFATE PO SCH (08:49)
[2019-07-16] MEDS: GLUCOSAMINE PO SCH (08:50)
[2019-07-16] MEDS: ZOLOFT PO SCH (08:50)
[2019-07-16] MEDS: INVANZ 1 GM/NS 1 GM/50 ML IVPB IV SCH (08:50)
[2019-07-16] MEDS: LOPRESSOR PO SCH ×2 (08:50→20:57)
[2019-07-16] MEDS: SENOKOT PO SCH ×2 (08:50→21:04)
[2019-07-16] MEDS: MEGACE LIQUID PO SCH ×2 (08:50→20:54)
[2019-07-16] MEDS: THERA M PLUS PO SCH (08:50)
[2019-07-16] MEDS: CLARITIN PO SCH (08:51)
[2019-07-16] MEDS: PATIENT'S OWN MED PO SCH ×2 (08:51)
[2019-07-16] MEDS: PERIDEX MT SCH ×2 (11:40→20:54)
[2019-07-16] MEDS ORDERED: LASIX PO ONE (11:44)
[2019-07-16] MEDS ORDERED: NS NEB INH SCH (11:45)
--- NOTE | 2019-07-16 12:10 | PROGRESS NOTE ---
DATE: 07/16/2019 SUBJECTIVE: I have seen and examined Ms. Grande today. The son and the granddaughter were at the bedside at the time of the encounter. I am told that Ms. Grande has just been remarkably sleepy and less interactive today. According to the nurses, she was straight cathed last night, and this morning, they scanned her abdomen, and she is retaining about 300 and something. OBJECTIVE: Current Vital Signs: Blood pressure is 136/86, pulse of 94, respirations 25, temperature 97.6 degrees, the patient was saturating 100% on 4 L. General: Ms. Grande is an 89-year-old female. She was in bed. She seems to be in mild respiratory distress. HEENT: Mucosa is pink and moist. Anicteric. Acyanotic. Neck: Supple. Chest: Good air entry bilaterally. There are a few crackles in the posterior lung tatum. Cardiovascular: Irregularly irregular. No murmurs. GI: Abdomen is soft. Bowel sounds present, but hypoactive. Extremities: The left hip has the surgical incision, which is affronted with clips. It looks clean. There is some edema on the upper thighs bilaterally. There is also about 1+ pedal edema on the lower extremities. PLATE WASHER: The patient was sleepy, but easily arousable, but then she would just go right back to sleep. She is very hard of hearing. LABORATORY DATA: None for today. ASSESSMENT: 1. Status post mechanical fall at home, resulting into an intertrochanteric hip fracture of the left hip. The patient is status post intertrochanteric nail placement. Today is day 5. 2. Chronic atrial fibrillation, which went into rapid ventricular response during the hospital course. The patient is currently on oral medications. 3. Extended spectrum beta-lactamase urinary tract infection. The patient is on antibiotics. 4. Altered mental status, most likely delirium on background dementia. The patient was also on a lot of psychotropic medications, which I have discontinued all of them today. 5. Nutritional status. Ms. Grande was on Clinimix yesterday. However, she seems to be having fluid overload, so this was discontinued yesterday. She is not that much alert today to let her eat. We are going to stop all her psychotropic medications to see if she will be awake enough to eat. If she does not get alert enough, I think the next thing will be to put in a nasogastric tube and start tube feedings. 6. Fluid overload. Ms. Grande definitely does have some congestion in her lungs, and she has pedal edema. I think it is a combination of parenteral nutrition and diastolic heart failure from the tachyarrhythmias. The patient's ejection fraction was about 55%. We are going to give her the doses of Lasix, and re-evaluate her hydration status tomorrow morning. In general, I think Ms. Grande is getting more complicated. She got admitted because of a left hip fracture, which has been intervened upon. However, during the hospital course, she has developed multiple comorbidities and complications, including altered mentation, atrial fibrillation, urinary tract infection, constipation, and very poor mobility. Her prognosis is getting poorer as she develops more complications. I have notified the family members about her clinical picture at this point, and the plan going forward. cc: Leonard Carl MD
[2019-07-16] MEDS ORDERED: LASIX IV ONE (12:23)
--- NOTE | 2019-07-16 12:46 | Diag Imaging Result Doc PS360 ---
CHEST-PORTABLE - 07/16/2019 INDICATION: dyspnea COMPARISON: 07/15/2019 FINDINGS: Stable sternotomy wires. Stable cardiomegaly and pulmonary vascular congestion. Stable faint bilateral upper lobe infiltrates. No pneumothorax or significant pleural effusion. Stable hazy atelectasis or infiltrate in the left lower lobe. IMPRESSION: No change from prior. Electronically signed by Everardo Hernandez 07/16/2019 12:44 PM
[2019-07-16] MEDS: XOPENEX NEB INH PRN (16:14)
--- NOTE | 2019-07-16 17:11 | Diag Imaging Result Doc PS360 ---
CT HEAD W/O CONTRAST - 07/16/2019 INDICATION: acute change, facial drooping right side COMPARISON: 07/10/2019 FINDINGS: Stable diffuse cerebral atrophy. Stable periventricular white matter chronic microvascular ischemia. No intracranial mass or hemorrhage. No new abnormalities. IMPRESSION: No acute process. This exam was performed using automated exposure control, adjustment of mA or kV according to patient size, and/or use of iterative reconstruction technique Electronically signed by Everardo Hernandez 07/16/2019 5:09 PM
[2019-07-16] MEDS: COLACE PO SCH (20:52)
[2019-07-16] MEDS: MELATONIN PO SCH (20:57)
[2019-07-16] MEDS: PRAVACHOL PO SCH (20:58)
[2019-07-17] MEDS: TYLENOL PO SCH ×3 (00:47→16:10)
[2019-07-17] MEDS: CARDIZEM PO SCH ×4 (02:15→20:26)
[2019-07-17] MEDS: LOVENOX SUBQ SCH (05:24)
[2019-07-17 06:41] LABS: BASO# 0.02 X1000 (0.0-0.2); BASO% 0.2 % (0.0-0.8); EOS# 0.18 X1000 (0.0-0.7); EOS% 1.7 % (0.0-10.0); HEMATOCRIT 31.4 % (37.0-47.0); HEMOGLOBIN 9.7 g/dL (12.0-16.0); IMM GRAN# 0.03 X1000 (0.0-0.04); IMM GRAN% 0.3 % (0.0-0.5); LYMPH# 1.31 X1000 (1.2-3.4); LYMPH% 12.7 % (20.5-51.1); MCH 29.4 PG (27-31); MCHC 30.9 g/dL (33-37); MCV 95.2 FL (81-99); MONO# 1.95 X1000 (0.11-0.59); MPV 10.6 FL (7.4-10.4); NEUT% 66.1 % (42.2-75.2); PLT 244 X1000 (130-400); RDW 13.4 % (11.5-14.5); WBC 10.29 X1000 (4.8-10.8)
[2019-07-17 07:16] LABS: AGAP 11; ALB/GLOB RATIO 0.9; ALBUMIN 2.8 g/dL (3.5-5.0); ALKALINE PHOSPHATASE 83 U/L (32-104); BUN 19 mg/dL (8-22); CHLORIDE 97 mmol/L (98-107); COSMO 284; CREATININE 0.6 mg/dL (0.5-0.9); ESTIMATED GFR > 60; GLUCOSE 115 mg/dL (70-104); GOT 41 U/L (10-30); GPT 32 U/L (10-36); POTASSIUM 3.6 mmol/L (3.5-5.1); SODIUM 141 mmol/L (136-145); TCO2 33 mmol/L (25-35); TOTAL BILIRUBIN 0.98 mg/dL (0.20-1.00)
[2019-07-17] MEDS: LOPRESSOR PO SCH ×2 (09:40→20:26)
[2019-07-17] MEDS: INVANZ 1 GM/NS 1 GM/50 ML IVPB IV SCH (09:41)
[2019-07-17] MEDS: FERROUS SULFATE PO SCH (09:51)
[2019-07-17] MEDS: PATIENT'S OWN MED PO SCH ×2 (09:53)
[2019-07-17] MEDS: PERIDEX MT SCH ×2 (09:53→20:29)
[2019-07-17] MEDS: CLARITIN PO SCH (11:36)
[2019-07-17] MEDS: GLUCOSAMINE PO SCH (11:36)
[2019-07-17] MEDS: MEGACE LIQUID PO SCH ×2 (11:37→20:29)
[2019-07-17] MEDS: THERA M PLUS PO SCH (11:37)
[2019-07-17] MEDS: SENOKOT PO SCH ×2 (11:37→20:29)
[2019-07-17] MEDS: VITAMIN D PO SCH (11:38)
--- NOTE | 2019-07-17 12:41 | PROGRESS NOTE ---
DATE: 07/17/2019 SUBJECTIVE: This morning Ms. Grande refers to be doing fairly okay. So last evening the charge nurse called me and notified me about a mass in Ms. Grande's left breast. This morning the daughter refers that Ms. Grande is aware and that her primary care doctor had at 1 point done a needle biopsy, but it was nonconclusive. They wanted to do a more core biopsy, but she refused and did not want to pursue this. I have been told that Ms. Grande continues not eating, and that she is now even not taking her pills. OBJECTIVE: Vital signs: Blood pressure is 115/75, pulse of 89, respirations 16, temperature is 99.3 degrees. The patient is saturating 97%. General: Ms. Grande is an 89-year-old female. She is in bed in no distress. HEENT: Mucosa is pink and moist. Anicteric. Acyanotic. Neck: Supple. Chest: Good air entry bilaterally. A few crackles in the posterior lung tatum. Cardiovascular: Irregularly irregular, but seems to be rate controlled. GI/Abdomen: Soft, nontender. Bowel sounds present, slightly hypoactive. Extremities: Left thigh has postsurgical changes. Both lower extremities have 1+ pedal edema. HAND PRESSER: Patient is awake and alert. Does not really follow much commands. She is very hard of hearing, but she moves all extremities. LABORATORY DATA: CBC shows a normocytic anemia. Chemistry is completely normal. The patient continues to be on Invanz until the ; tomorrow is the last day. ASSESSMENT: 1. Status post mechanical fall at home resulting in a left intertrochanteric hip fracture. The patient underwent intertrochanteric nail placement, today is day 6. Orthopedics is on board. 2. Chronic atrial fibrillation which went into rapid ventricular response during the hospital course. The patient is doing well, is currently rate controlled, but is still in atrial fibrillation. 3. Extended spectrum beta lactamase Escherichia coli urinary tract infection. The patient is on Invanz. End of therapy is tomorrow. 4. Altered mental status secondary to delirium on background dementia. 5. Polypharmacy with multiple psychotropic medications; these have all been discontinued. 6. Fluid overload. This is looking a lot better today. Ms. Grande had about 1000 urine output. She is still about 9000 positive on fluid. We are going to give her another dose of Lasix today. 7. Nutritional support. I have been told that Ms. Grande is just not eating anything at all. She is fluid overloaded, so we do not want to use any intravenous form of nutrition. We are going to get her a nasogastric tube and start enteral feeding. I will consult dietitian to help with tube feeding recommendations. 8. Left breast mass. I did evaluate the mass this morning. There seems to be about 2 different separate masses in the left breast at the outer upper quadrant. The overlying skin does not seem to be affected. I did not feel any lymph nodes under the left axilla either. The masses themselves in the breast are mobile, but very irregular in the surfaces. I presume this is a form of breast malignancy; however, Ms. Grande does not want to do any anything to this breast according to the daughter. So, I think Ms. Grande is now a lot more stable. She is still fluid overloaded, so we are going to continue with diuretic as needed. We are going to put in an NG tube and get her some enteral feeding to enhance her nutritional status, and also to ensure that she gets her medications for her atrial fibrillation. Ms. Grande is a resident of [facility], and I think once she is more medically stable she can be transferred back. cc: Leonard Carl MD
[2019-07-17] MEDS: XOPENEX NEB INH PRN (19:52)
[2019-07-17] MEDS: COLACE PO SCH (20:29)
[2019-07-17] MEDS: MELATONIN PO SCH (20:29)
[2019-07-17] MEDS: PRAVACHOL PO SCH (20:29)
[2019-07-18] MEDS: CARDIZEM PO SCH ×4 (01:23→20:39)
[2019-07-18] MEDS: MELATONIN PO SCH ×2 (01:23→20:39)
[2019-07-18] MEDS: TYLENOL PO SCH ×3 (01:24→18:02)
[2019-07-18 06:07] LABS: HEMOGLOBIN 9.3 g/dL (12.0-16.0); MCH 29.4 PG (27-31); MCV 94.9 FL (81-99); MPV 10.4 FL (7.4-10.4); RBC 3.16 XMIL (4.2-5.4); RDW 13.6 % (11.5-14.5); WBC 10.93 X1000 (4.8-10.8)
[2019-07-18 06:25] LABS: AGAP 10; ALBUMIN 2.6 g/dL (3.5-5.0); BUN 19 mg/dL (8-22); CALCIUM 8.5 mg/dL (8.8-10.2); CHLORIDE 98 mmol/L (98-107); COSMO 287; CREATININE 0.7 mg/dL (0.5-0.9); ESTIMATED GFR > 60; GLUCOSE 121 mg/dL (70-104); PHOSPHORUS 3.7 mg/dL (2.7-4.5); SODIUM 142 mmol/L (136-145); TCO2 34 mmol/L (25-35)
[2019-07-18 06:30] LABS: MAGNESIUM 1.9 mg/dL (1.5-2.7); PHOSPHORUS 3.8 mg/dL (2.7-4.5); PREALBUMIN 9.2 mg/dL (20-40)
[2019-07-18] MEDS: LOPRESSOR PO SCH ×2 (09:54→20:39)
[2019-07-18] MEDS: FERROUS SULFATE PO SCH (09:57)
[2019-07-18] MEDS: LOVENOX SUBQ SCH (10:00)
[2019-07-18] MEDS: CLARITIN PO SCH (10:08)
[2019-07-18] MEDS: GLUCOSAMINE PO SCH (10:09)
[2019-07-18] MEDS: MEGACE LIQUID PO SCH ×3 (10:10→20:38)
[2019-07-18] MEDS: PATIENT'S OWN MED PO SCH ×2 (10:11→10:13)
[2019-07-18] MEDS: THERA M PLUS PO SCH (10:14)
[2019-07-18] MEDS: SENOKOT PO SCH ×2 (10:14→20:39)
[2019-07-18] MEDS: PERIDEX MT SCH ×2 (10:14→20:38)
[2019-07-18] MEDS: VITAMIN D PO SCH (10:16)
--- NOTE | 2019-07-18 16:28 | PROGRESS NOTE ---
DATE: 07/18/2019 SUBJECTIVE: This morning Ms. Grande referred to be doing well. The daughter and the son were both at the bedside at the time of the encounter. According to the daughter, she was able to eat some breakfast, and yesterday she was also able to eat crackles right in front of me late in the evening. OBJECTIVE: Vital signs: Blood pressure is 102/51, pulse of 63, respirations 18, temperature is 98.3 degrees. General exam: Ms. Grande is an 89-year-old female. She was in bed in no distress. HEENT: Mucosa was pink and moist. Anicteric. Acyanotic. Neck: Supple. Chest: Clear to auscultation. Cardiovascular: Irregularly irregular, but rate controlled. GI/Abdomen: Soft. Bowel sounds present. Extremities: The left thigh still has some postsurgical changes. Lower extremities have about 1+ pedal edema. QUARTER SUPERVISOR: Patient was sleeping, but easily arousable. She is very hard of hearing. LABORATORY DATA: Has been reviewed. She still has some normocytic anemia with normal platelet count. Chemistry is completely within normal range. Albumin is 2.6 and prealbumin is 9.2. ASSESSMENT: 1. Status post mechanical fall at home resulting in a left intertrochanteric hip fracture. This has been intervened upon; today is day 7 post surgery. 2. Chronic atrial fibrillation which went into rapid ventricular response during the hospital course. It is currently rate controlled. 3. Extended spectrum beta lactamase Escherichia coli. The patient has completed treatment during the hospital course. 4. Altered mental status due to delirium and background dementia. 5. Polypharmacy with multiple psychotropic medications; these have been withheld. 6. Fluid overload, improved. 7. Left breast mass, presumably malignancy. Patient is aware and does not want to pursue any further investigations. 8. Protein calorie malnutrition. The patient is now eating a little better. The family thinks that she ate about 50% of her breakfast today and ate some crackles as well. She is also getting some nutritional supplement. We were going to put in a nasogastric tube yesterday; however, Ms. Grande declines wanting to have a nasogastric tube. cc: Leonard Carl MD
[2019-07-18] MEDS: XOPENEX NEB INH PRN (19:25)
[2019-07-18] MEDS: PRAVACHOL PO SCH (20:39)
[2019-07-18] MEDS: COLACE PO SCH (20:39)
[2019-07-19] MEDS: CARDIZEM PO SCH ×3 (01:06→15:40)
[2019-07-19] MEDS: TYLENOL PO SCH ×3 (01:08→15:41)
[2019-07-19] MEDS: XOPENEX NEB INH PRN ×2 (07:54→11:19)
[2019-07-19] MEDS: LOPRESSOR PO SCH (08:35)
[2019-07-19] MEDS: CLARITIN PO SCH (08:35)
[2019-07-19] MEDS: MEGACE LIQUID PO SCH (08:35)
[2019-07-19] MEDS: SENOKOT PO SCH (08:35)
[2019-07-19] MEDS: THERA M PLUS PO SCH (08:35)
[2019-07-19] MEDS: PERIDEX MT SCH (08:35)
[2019-07-19] MEDS: VITAMIN D PO SCH (08:36)
[2019-07-19] MEDS: FERROUS SULFATE PO SCH (08:36)
[2019-07-19] MEDS: PATIENT'S OWN MED PO SCH ×2 (08:36)
[2019-07-19] MEDS: LOVENOX SUBQ SCH (08:36)
[2019-07-19] MEDS: GLUCOSAMINE PO SCH (08:36)
[2019-07-19 11:43] VITALS: BP 115/57
--- NOTE | 2019-07-19 15:15 | DISCHARGE SUMMARY ---
ADMISSION DATE: 07/10/2019 DISCHARGE DATE: 07/19/2019 DISPOSITION: Back to [facility]. CONSULTATION DURING THIS ADMISSION: Orthopedics was consulted. The patient was seen by Dr. Winslow. Cardiology was consulted. The patient was seen by Dr. Castaneda followed up Dr. Rafy Echeverria. INVASIVE PROCEDURES DONE DURING THIS ADMISSION: Closed reduction, intramedullary nail fixation of the left femur and hip was done by Dr. Winslow on 07/11/2019. IMAGING STUDIES OF SIGNIFICANCE: 1. Hip, pelvic x-ray showed a left hip intertrochanteric fracture. 2. A head scan and cervical spine showed no acute disease. 3. A repeat chest x-ray done on 07/10/2019 show mild chronic-appearing interstitial thickening, no definite acute pathology. 4. Multiple chest x-rays were done afterwards. A CT scan was done again on 07/16, which was unremarkable for acute event. ADMISSION DIAGNOSIS: 1. Status post fall. 2. Left hip fracture. 3. Atrial fibrillation currently rate-controlled. 4. Dementia. DIAGNOSIS AT THE TIME OF DISCHARGE: 1. Status post mechanical fall resulting in a left intertrochanteric hip fracture. The patient is status post closed reduction, intramedullary fixation of the hip. Today is day 8 after surgery. 2. Chronic atrial fibrillation. The patient went into RVR during the hospital course, currently rate-controlled. 3. Extended-spectrum beta-lactamase Escherichia coli urinary tract infection. The patient was treated fully during the hospital course, does not need anymore antibiotic coverage. 4. Altered mental status secondary to delirium and background of dementia. 5. Polypharmacy with multiple psychotropic medications, have been withheld. 6. Fluid overload improved. 7. Left breast mass presumably malignant. The patient declined to pursue any further investigations. 8. Protein calorie malnutrition. The patient was evaluated during the hospital course by dietitian. DISCHARGE MEDICATIONS: 1. Glucosamine. 2. Cholecalciferol 1000 units p.o. daily. 3. Metoprolol 100 mg b.i.d. 4. Pravastatin 40 mg p.o. at bedtime. 5. Clopidogrel 75 mg p.o. daily. 6. Losartan 25 mg p.o. daily. 7. Senna 8.6 mg b.i.d. 8. Tylenol 650 p.o. daily. 9. Melatonin 3 mg p.o. at bedtime. 10.Docusate 200 mg p.o. at bedtime. 11.Diltiazem 180 p.o. daily. 12.Iron sulfate 325 mg p.o. daily. 13.Megestrol 400 p.o. b.i.d. 14.Guei-kf-Kisojmlt. 15.Rivaroxaban 10 mg p.o. daily for 30 days. MEDICATIONS THAT HAVE BEEN WITHHELD: 1. Sertraline. 2. Trazodone. The patient has been advised to follow up with her primary care and evaluate the need to go back on these medications. PRESENTING COMPLAINT: Fall, left hip pain. HISTORY OF PRESENT COMPLAINT: Ms. Grande is an 89-year-old elderly female with a history of hypertension, dyslipidemia, dementia, chronic atrial fibrillation, was brought to the emergency department from the senior living after she fell the night before sustaining an injury to the left hip. She could not get up and help herself. She was brought in to the emergency department, was evaluated including an initial x-ray which revealed a left hip fracture. Ms. Grande was subsequently admitted for further medical care. HOSPITAL COURSE: Ms. Grande was admitted to the Medical floor and telemonitoring. She was preoperatively evaluated and we recommended surgery to proceed. She underwent a left hip fixation intramedullary nail fixation with Dr. Winslow, which was successful. Postoperatively, she went into atrial fibrillation RVR, was transferred from the Surgical floor to [facility]. She was started on medications and Cardiology was consulted. Heart rate got better control. Later part of the hospital course was complicated with Ms. Grande not wanting to eat. She was started on IV Clinimix. Unfortunately, she became fluid overload as a result of diastolic heart failure, hyperbilirubinemia, and IV nutrition. The Clinimix was discontinued. Ms. Grande was given couple doses of IV Lasix. She continued to diurese well. At some point, NG tube was contemplated to be placed in to enhance her nutritional status, however, Ms. Grande declined to that. She started however eating some of her meals. Since yesterday, she has been documented to be eating about 25% of her meals. She has been started on Megace to enhance her appetite and she has been seen on daily basis by Physical Therapy. We think Ms. Grande is now clinically stable. She has achieved maximum benefit of acute hospitalization. We think that she will need to continue with Physical Therapy to enhance her physical strength. We have also encouraged Ms. Grande to continue to increase her oral intake to optimize her nutritional status. All the discharge instructions were discussed with her, a son in law was at the bedside today at the time of the encounter. Yesterday, I had a lengthy discussion with the daughter and the son, who were both at the bedside at that time of my encounter. TIME SPENT FOR DISCHARGE: 40 minutes. cc: MD Oscar Draper MD Luis N. Villanueva, MD [facility] Medical Staff [facility]
== END 2019-07-19 17:19 | DRG 481 ==
LOC: SUPCPDRO → ED 07:11 → SUATTDRO 09:34 → EDIPHOLD 09:34 → 4N 15:07 → 2N 07-11 16:06
PROVIDERS: ATTEND Internal Medicine